=== PATIENT | female | born 1955 | race Caucasian/White ===

== ENCOUNTER → 2018-01-09 09:07 | Outpatient (CLI) | payer OTHER, SELFPAY ==
[2018-01-09 09:18] VITALS: BP 150/86; PULSE 63; RESP 18; TEMP 36.4; O2SAT 98; BMI 23.6
[2018-01-09] MEDS: Zoledronic Acid 5 MG 100 ML 300 MG IV (09:49)
== END ==
PROVIDERS: Family Provider Family Medicine; PCP Family Medicine; Visit Provider Family Medicine
DX: M81.0 Age-related osteoporosis without current pathological fracture (principal)
CPT/HCPCS: 96365; J7050; A4216; J3489

== ENCOUNTER 2018-02-20 17:02 | Outpatient (RCR) | payer OTHER, SELFPAY ==
--- NOTE | 2018-02-20 18:12 | HP.PTEVAL_ITS ---
Patient's Visit Information NATALYA PURI is a 62 year old F referred to Physical Therapy by Tina Sheffield MD with a diagnosis of Back pain especially the L side. Date of Evaluation: 02/20/18 Physical Therapist: Tessa Calderon - Visit Plan Frequency: 2x /Week Duration: 4 Weeks Plan: Call MD and get an x-ray. With h/o severe osteoporosis, mechanism of injury lifting a heavy person, constant abdominal pain, comstipation, loss of apetite, pain relieved lying down and increased in standing...concerned about a compression fx. After R/O compression fx work on neutral spine core stability, proper lifting techniques, possible recommendation of a back brace for work with HEP and modalities as needed. 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 It hurts across her LB, B hips medial and stomach area and side where ribs in. As soon as pain in back the stomach started to hurt which has never done that before. and her stomach hurts and harder to have normal bowl movements. She has taken a few percacet. She has severe Osteoporsis of her spine. She is not losing bowl and bladder control. It is sharp oain in the stomach like a severe cramping. She hurts and tries to sleep all the time cause its uncomfortable. It is non-stop stomach pain....she does not feel like eating cause of the pain. - Pain back pain Pain Intensity (Out of 10): 7 Hip pain Pain Intensity (Out of 10): 7 rib pain Pain Intensity (Out of 10): 7 stomach pain Pain Intensity (Out of 10): 7 - Objective Trunk AROM: flex 100% with increased pain, ext 50% with some pain, SB B 75%. Gait: normal gait pattern.... able to walk on toes but pulls on the L side LB. Able to walk on heels. LE MMT: B hip flex 4-/5, B hip abd 4-/5, B knee flex 4/5, B knee ext 4/5. -SLUMP test, - SLR test. Prone Lying has pressure in the center of her back.....laid there X 5 min and the pain remaind present - Goals Goal 1:: I HEP Goal Time Frame: 4-6 Weeks Goal 2:: Be able to demonstrate proper lifting mechanics to avoid re-injury Goal Time Frame: 4-6 Weeks Goal 3:: decrease back pain to 1/10 with ADL's Goal Time Frame: 4-6 Weeks - Rehabilitation Potential Rehabilitation Potential: Good - Anticipated Interventions Patient/Client Instruction: Educate patient on: Plan of Care For the Purpose of:: To decrease pain, To improve nutrient delivery to tissue, To improve muscle performance and motor function, To improve ability to perform ADL's, To increase tolerance to activity/condition/position, To increase flexibility/ROM Therapeutic Exercise to Include: Strength training, Postural training, Dynamic Lumbar Stabilization, Scapular Strength/Stabilization For the Purpose of:: To decrease pain, To increase ROM, To improve nutrient delivery to tissue, To improve muscle performance and motor function, To improve ability to perform ADL's, To increase tolerance to activity/condition/ position, To improve ability of physical actions for home/community/work/leisure , To improve health of tissue IF ES: Yes Cryotherapy (ice pack, ice massage): Yes Thermo therapy (hot pack): Yes Ultrasound (thermal/non thermal): Yes For the Purpose of:: To decrease pain, To decrease swelling/inflammation, To increase ROM, To improve nutrient delivery to tissue Thank you for the opportunity to evaluate your patient. For Medicare and Medicare HMO plans, please review the plan of care and approve it. It will need to be FAXED BACK to us at [phone] for Medicare purposes. Please let me know if there are questions or concerns regarding this plan of care. Physician Signature: Date:
--- NOTE | 2018-05-15 17:45 | HP.PTDCNRP_ITS ---
HP - Discharge Summary (1) - Patient Information NATALYA PURI was seen in my office for initial evaluation on 02/20/18. The following Plan of Care was established for this patient: Initial Frequency: 2x /Week Initial Duration: 4 Weeks - Anticipated Interventions Patient/Client Instruction: Educate patient on: Plan of Care For the Purpose of:: To decrease pain, To improve nutrient delivery to tissue, To improve muscle performance and motor function, To improve ability to perform ADL's, To increase tolerance to activity/condition/position, To increase flexibility/ROM Therapeutic Exercise to Include: Strength training, Postural training, Dynamic Lumbar Stabilization, Scapular Strength/Stabilization For the Purpose of:: To decrease pain, To increase ROM, To improve nutrient delivery to tissue, To improve muscle performance and motor function, To improve ability to perform ADL's, To increase tolerance to activity/condition/ position, To improve ability of physical actions for home/community/work/leisure , To improve health of tissue IF ES: Yes Cryotherapy (ice pack, ice massage): Yes Thermo therapy (hot pack): Yes Ultrasound (thermal/non thermal): Yes For the Purpose of:: To decrease pain, To decrease swelling/inflammation, To increase ROM, To improve nutrient delivery to tissue This patient was last seen in our office 02/20/18. Pertinent comments regarding their Physical therapy will appear below: VIJAYA PT as pt did not make any follow up appointments following her eval At this point I will be discontinuing this patient from physical therapy. I would be happy to see this patient again in the future if found appropriate by the physician. Thank you! Tessa Calderon
== END 2018-02-20 19:00 | disposition home or self-care (01) ==
LOC: PT 17:02
PROVIDERS: Family Provider Family Medicine; PCP Family Medicine; Visit Provider Family Medicine
DX: M54.9 Dorsalgia, unspecified (principal)
CPT/HCPCS: 97162

== ENCOUNTER → 2018-02-21 10:36 | Outpatient (CLI) | payer OTHER, SELFPAY ==
--- NOTE | 2018-02-21 10:40 | RAD_ITS ---
STUDY: X-RAY - THORACIC SPINE REASON FOR EXAM: Female, 62 years old. Back pain. Left-sided back pain. TECHNIQUE: 2 view(s) of the thoracic spine were obtained. COMPARISON: Lumbar spine, February 21, 2018. FINDINGS: Normal kyphosis of the thoracic spine. There is no substantial scoliosis. Normal thoracic vertebrae and endplates. Normal disc space heights. There is no evidence of acute fracture or loss of vertebral axial height. The soft tissue structures are unremarkable. RAD/Thoracic Spine 3 Views IMPRESSION: Normal x-ray examination of the thoracic spine. Electronically Signed: Nik Zaman DO at 17:43 EDT Tel [phone], Service support ,
--- NOTE | 2018-02-21 10:40 | RAD_ITS ---
STUDY: X-RAY - LUMBAR SPINE REASON FOR EXAM: Female, 62 years old. Back pain radiating into the left side. TECHNIQUE: 5 view(s) of the lumbar spine were obtained. COMPARISON: None FINDINGS: Normal lumbar lordosis. There is no substantial scoliosis. There is a normal alignment of the vertebrae. Normal vertebral bodies and endplates. Normal disc space heights. There is no evidence of acute fracture or loss of vertebral axial height. There is no demonstrated spondylolysis of the pars interarticulares. There is atherosclerotic calcification of the abdominal aorta without a demonstrated aneurysm. There is distended small bowel loops suggestive of ileus. RAD/L/S Spine Min 4 Views IMPRESSION: Normal x-ray examination of the lumbar spine. Electronically Signed: Nik Zaman DO at 18:24 EDT Tel [phone], Service support ,
== END ==
PROVIDERS: Family Provider Family Medicine; PCP Family Medicine; Visit Provider Family Medicine
DX: M54.9 Dorsalgia, unspecified (principal); M81.0 Age-related osteoporosis without current pathological fracture
CPT/HCPCS: 72072; 72110

== ENCOUNTER 2018-05-06 15:58 | Emergency (ER) | payer OTHER, SELFPAY ==
[2018-05-06 15:59] VITALS: BP 135/75; PULSE 93; RESP 18; TEMP 37.1; O2SAT 98; BMI 23.0
--- NOTE | 2018-05-06 16:08 | ED.VISSUMM ---
- ER Visit Summary Date of Service: 05/06/18 Chief Complaint: Cough History of Present Illness: The patient is a 62 F who has had cough for 3 weeks. Is productive of yellow sputum. She has had sinus congestion with it. She does have a history of COPD and try to use her albuterol but she states she cannot take a deep breath enough to get the medicines in. Hurts to breathe deep because of all the coughing. She tried Mucinex and allergy medicines without any relief. Denies any fevers. Physical Examination: Vital signs reviewed. HEENT exam unremarkable. Heart is regular rate and rhythm without murmurs. Lungs are clear to auscultation. Abdomen is soft and nontender. Extremities reveal no edema. Skin exam normal. Neurologic exam normal. Test Results: Chest x-ray reveals chronic changes my interpretation Emergency Department Course and Treatment: Patient had a azithromycin here due to the longevity of her symptoms. She will follow-up with her PCP Treatment Plan: [] Disposition: Discharge Impression: Acute bronchitis This note was generated with [employer] dictation software. It may contain incorrect words, spelling, and punctuation that were not noted in review of the chart prior to signing ED Disposition - Plan for ED Patient: Chief Complaint: Cough Referrals: Tina Sheffield MD [Primary Care Provider] -
[2018-05-06 16:53] VITALS: O2SAT 98
--- NOTE | 2018-05-06 17:57 | ED.DEP ---
ED Disposition - Plan for ED Patient: Disposition: Home or Assisted Living Chief Complaint: Cough Instructions: ED Upper Resp Infec Abx Tx Prescriptions: Azithromycin [Zithromax] 250 mg PO DAILY #4 tab Referrals: Tina Sheffield MD [Primary Care Provider] -
[2018-05-06] MEDS: Azithromycin 250 MG Tablet 500 MG PO (18:03)
[2018-05-06 18:04] VITALS: BP 127/71; PULSE 82; RESP 16; O2SAT 97
--- NOTE | 2018-05-07 11:11 | CM.ED ---
ED CALLBACK: Follow-up call placed to patient with no answer. Voicemail left with return contact information.
== END 2018-05-06 18:08 | disposition home or self-care (01) ==
PROVIDERS: Emergency Provider Emergency Medicine; Family Provider Family Medicine; PCP Family Medicine
DX: J44.0 Chronic obstructive pulmonary disease with (acute) lower respiratory infection (principal); J20.9 Acute bronchitis, unspecified; I10 Essential (primary) hypertension; Z79.899 Other long term (current) drug therapy
CPT/HCPCS: 71046; 99283

== ENCOUNTER 2018-05-23 08:02 | Emergency (ER) | payer OTHER, SELFPAY ==
[2018-05-23 08:03] VITALS: BP 97/69; PULSE 147; RESP 16; TEMP 36.7; O2SAT 97; BMI 23.0
--- NOTE | 2018-05-23 08:21 | EKG12_ITS ---
Test Reason : REPEAT EKG Blood Pressure : / mmHG Vent. Rate : 059 BPM Atrial Rate : 059 BPM P-R Int : 114 ms QRS Dur : 080 ms QT Int : 404 ms P-R-T Axes : 000 035 032 degrees QTc Int : 399 ms Sinus bradycardia with sinus arrhythmia Otherwise normal ECG Confirmed by VIGNESH MOMIN, FARIDA ([id number]), editorial specialist HOLLIE ESPINO ([id number]) on 05/29/2018 9:12:02 AM Referred By: HALEY Confirmed By:FARIDA MEDELLIN MD
--- NOTE | 2018-05-23 08:25 | RAD_ITS ---
STUDY: X-RAY CHEST REASON FOR EXAM: Female, 62 years old. Shortness of breath. Dyspnea. TECHNIQUE: Single AP portable view of the chest. COMPARISON: Comparison is made with prior study dated May 06, 2018. FINDINGS: EKG electrodes are seen. Hyperinflation. The lungs are clear. No acute abnormality is seen. There is no demonstrated pleural abnormality. Normal size heart. Normal mediastinum and tiago. Normal visualized pulmonary arteries. Normal visualized aortic arch and descending thoracic aorta. Normal visualized thoracic spine. Normal visualized ribs, clavicles, and shoulders. There is no demonstrated abnormality of the visualized soft tissue structures of the upper abdomen. RAD/Chest 1 View (Portable) IMPRESSION: Hyperinflation. Electronically Signed: Ej Clifton MD at 9:31 EDT Tel [phone], Service support ,
[2018-05-23] MEDS: 0.9% Normal Saline 1,000 ML 1000 ML IV (08:28)
[2018-05-23] MEDS: dilTIAZem 25 MG/5 ML Vial 10 MG IV BOLUS (08:28)
[2018-05-23 08:48] LABS: Absolute Lymphocyte Count 1.82 X10^3/ul (0.83-4.51); Absolute Neutrophil Count 6.4 X10^3/uL (2.0-7.7); Basophil# 0.04 X10^3/uL; Basophil% 0.4 % (0-1); Eosinophil# 0.11 X10^3/uL; Eosinophils% 1.2 % (0-5); Hematocrit 44.9 % (37-47); Hemoglobin 14.8 g/dl (12.0-15.0); Lymphocyte # 1.82 X10^3/ul (4.0); Lymphocyte % 20.4 % (19-41); Mean Corpuscular Hgb 30.3 pg (27.0-32.0); Mean Corpuscular Volume 91.8 fL (81-99); Mean Platelet Vol. 10.7 fl (6.2-12.0); Monocyte# 0.57 X10^3/uL; Monocyte% 6.4 % (0-10); Neutrophil # 6.39 X10^3/uL (2.7-7.7); Neutrophil % 71.5 % (47-70); Platelet Count 287 K/mm3 (150-450); RBC Distribution Width CV 13.6 % (11.6-14.6); RBC Distribution Width SD 45.1 fl (35.1-43.9); Red Blood Count 4.89 M/mm3 (4.2-5.4); White Blood Count 8.9 K/mm3 (4.4-11.0)
[2018-05-23] MEDS: DiphenhydrAMINE 50 MG/ML Syringe 25 MG IV (08:49)
[2018-05-23 08:51] LABS: POSITIVE COUNT NO; POSITIVE DIFFERENTIAL NO; POSITIVE MORPHOLOGY NO
[2018-05-23 09:05] LABS: Anion Gap 13 (5-15); BUN 16 mg/dL (7-18); BUN/Creat Ratio 18.7 RATIO (10-20); Chloride 106 mmol/L (98-107); Creatinine, Serum 0.86 mg/dL (0.55-1.02); EST Glomerular Filtration Rate 71 mL/min (>60); Est Glom Filt Rate - Afr Amer 86 mL/min (>60); Estimated Creatinine Clearance 53.64 ml/min; Glucose 151 mg/dL (74-106); Potassium 3.8 mmol/L (3.5-5.1); Sodium Level 140 mmol/L (136-145)
--- NOTE | 2018-05-23 09:46 | ED.VISSUMM ---
- ER Visit Summary Date of Service: 05/23/18 Chief Complaint: [Elevated heart rate] History of Present Illness: The patient is a 62 F [that presents with elevated heart rate. Patient has a history of an elevated heart rate in the past. She states initially she was told she had atrial fibrillation but then she was told she had a tachycardic rhythm and sometimes premature beats. She takes no anticoagulation other than aspirin. She states she has not taken aspirin lately. She takes diltiazem at home but sometimes forgets and yesterday admits she took it at night instead of in the morning. She has no history of arrhythmia otherwise and denies any history of WPW. She denies any chest pain or shortness of breath. No symptoms of near syncope or syncope. She overall appears well and nontoxic. No recent fever or illness. She has no other complaints.] Physical Examination: [General: The patient appears well and in no apparent distress. Patient is resting comfortably on cart. Skin: Warm, dry, no pallor noted. No rash. Head: Normocephalic, atraumatic Neck: Supple, nontender. No JVD. Eye: PERRLA, EOMI ENT: Moist mucus membranes, pharynx within normal limits. Cardiovascular: Tachycardic rate and regular rhythm, no gallups or rubs Respiratory: Patient is in no distress, no accessory muscle use, lungs are clear to auscultation, no wheezing, rales or rhonchi Musculoskeletal: normal ROM, no deformity, no tenderness, no swelling. 2+ radial and DP pulses symmetric. GI: No tenderness to palpation, no masses appreciated. No rebound, guarding, or rigidity noted. Neurological: A&O, normal strength and sensation. GCS 15. Psychiatric: Cooperative] Test Results: [EKG; tachycaric and regular appearing rhythm with a rate of 139, no acute ischemic changes or arrhythmia. Normal intervals. No heart blocks. No delta wave. Liver overall unremarkable. Chest x-ray shows no acute process.] Emergency Department Course and Treatment: [Patient was given IV fluids and 10 mg of IV Cardizem. She had some erythema of the right upper extremity where her IV site is and she was given IV Benadryl. She had no hives or urticaria. No dyspnea. She remained overall well-appearing and nontoxic. Her heart rate did improve and repeat EKG shows a sinus rhythm with a rate of 59. I do see P waves. There is no evidence of ischemia. On reevaluation at 0940 her heart rate is in the 60s and her blood pressure is 120 systolic. She is currently asymptomatic. She ambulated to the restroom without difficulty. At this time I feel she is stable for discharge and close follow-up with her primary provider and neuropsychiatrist. She was instructed to remain compliant with her medications and return with any new or worsening symptoms. Patient understands and is agreeable with this plan of care. Patient was discharged home in stable and improved condition.] Treatment Plan: [See above] Disposition: [Discharge home, stable and improved condition] Impression: [Narrow complex tachycardia - resolved] This note was generated with [employer] dictation software. It may contain incorrect words, spelling, and punctuation that were not noted in review of the chart prior to signing ED Disposition - Plan for ED Patient: Disposition: Home or Assisted Living Chief Complaint: Palpitations Instructions: ED Tachycardia Pat PSVT Referrals: Tina Sheffield MD [Primary Care Provider] -
--- NOTE | 2018-05-23 09:52 | ED.DCSUM_ITS ---
- ER Visit Summary Date of Service: 05/23/18 Chief Complaint: [Elevated heart rate] History of Present Illness: The patient is a 62 F [that presents with elevated heart rate. Patient has a history of an elevated heart rate in the past. She states initially she was told she had atrial fibrillation but then she was told she had a tachycardic rhythm and sometimes premature beats. She takes no anticoagulation other than aspirin. She states she has not taken aspirin lately. She takes diltiazem at home but sometimes forgets and yesterday admits she took it at night instead of in the morning. She has no history of arrhythmia otherwise and denies any history of WPW. She denies any chest pain or shortness of breath. No symptoms of near syncope or syncope. She overall appears well and nontoxic. No recent fever or illness. She has no other complaints.] Physical Examination: [General: The patient appears well and in no apparent distress. Patient is resting comfortably on cart. Skin: Warm, dry, no pallor noted. No rash. Head: Normocephalic, atraumatic Neck: Supple, nontender. No JVD. Eye: PERRLA, EOMI ENT: Moist mucus membranes, pharynx within normal limits. Cardiovascular: Tachycardic rate and regular rhythm, no gallups or rubs Respiratory: Patient is in no distress, no accessory muscle use, lungs are clear to auscultation, no wheezing, rales or rhonchi Musculoskeletal: normal ROM, no deformity, no tenderness, no swelling. 2+ radial and DP pulses symmetric. GI: No tenderness to palpation, no masses appreciated. No rebound, guarding, or rigidity noted. Neurological: A&O, normal strength and sensation. GCS 15. Psychiatric: Cooperative] Test Results: [EKG; tachycaric and regular appearing rhythm with a rate of 139, no acute ischemic changes or arrhythmia. Normal intervals. No heart blocks. No delta wave. Liver overall unremarkable. Chest x-ray shows no acute process. ] Emergency Department Course and Treatment: [Patient was given IV fluids and 10 mg of IV Cardizem. She had some erythema of the right upper extremity where her IV site is and she was given IV Benadryl. She had no hives or urticaria. No dyspnea. She remained overall well-appearing and nontoxic. Her heart rate did improve and repeat EKG shows a sinus rhythm with a rate of 59. I do see P waves. There is no evidence of ischemia. On reevaluation at 0940 her heart rate is in the 60s and her blood pressure is 120 systolic. She is currently asymptomatic. She ambulated to the restroom without difficulty. At this time I feel she is stable for discharge and close follow-up with her primary provider and clothing pattern preparer. She was instructed to remain compliant with her medications and return with any new or worsening symptoms. Patient understands and is agreeable with this plan of care. Patient was discharged home in stable and improved condition.] Treatment Plan: [See above] Disposition: [Discharge home, stable and improved condition] Impression: [Narrow complex tachycardia - resolved] This note was generated with [employer] dictation software. It may contain incorrect words, spelling, and punctuation that were not noted in review of the chart prior to signing ED Disposition - Plan for ED Patient: Disposition: Home or Assisted Living Chief Complaint: Palpitations Instructions: ED Tachycardia Pat PSVT Referrals: Tina Sheffield MD [Primary Care Provider] -
--- NOTE | 2018-05-23 09:56 | EKG12_ITS ---
Test Reason : CP Blood Pressure : / mmHG Vent. Rate : 139 BPM Atrial Rate : 174 BPM P-R Int : 000 ms QRS Dur : 080 ms QT Int : 288 ms P-R-T Axes : 000 051 011 degrees QTc Int : 438 ms Supraventricular tachycardia Otherwise normal ECG Confirmed by VIGNESH MOMIN, FARIDA ([id number]), food editor HOLLIE ESPINO ([id number]) on 05/29/2018 9:23:41 AM Referred By: CHA Confirmed By:FARIDA MEDELLIN MD
[2018-05-23 10:01] VITALS: BP 141/75; PULSE 69; RESP 17; O2SAT 98
== END 2018-05-23 10:03 | disposition home or self-care (01) ==
PROVIDERS: Emergency Provider Emergency Medicine; Family Provider Family Medicine; PCP Family Medicine
DX: R00.0 Tachycardia, unspecified (principal); L53.9 Erythematous condition, unspecified; Z79.899 Other long term (current) drug therapy
CPT/HCPCS: 71045; 80048; 84484; 85025; 93005; 96361; 96374; 96375; 99285; J7030; A4216

== ENCOUNTER 2018-11-03 18:14 | Emergency (ER) | payer OTHER, SELFPAY ==
[2018-11-03 18:15] VITALS: BP 138/97; PULSE 98; RESP 20; TEMP 37.4; O2SAT 97; BMI 23.0
--- NOTE | 2018-11-03 19:03 | ED.DCSUM_ITS ---
- ER Visit Summary Date of Service: 11/03/18 Chief Complaint: Cough History of Present Illness: The patient is a 63 F presenting with cough and fever. Patient has had low-grade fever with temperature up to 99.6 at home. She has cough productive of yellow sputum. She also complains of body aches and nausea. She denies shortness of breath or chest pain. She was recently diagnosed with lung cancer and is scheduled to have a lung biopsy tomorrow. She did not receive a flu shot this year. She is a previous smoker. Physical Examination: Vitals are stable. Temperature 99.3. Pulse ox 97% on room air. alert no acute distress. HEENT exam is unremarkable. Neck is supple. Lungs are clear and equal bilaterally. Heart is regular rate and rhythm. Abdomen is soft nontender nondistended. Extremities are unremarkable. Skin is warm and dry. No focal neurologic deficit. Remainder of exam is unremarkable. Emergency Department Course and Treatment: Patient was given Tylenol, Zofran. Influenza negative. Chest x-ray shows right upper lobe collapse/volume loss, new. Post obstructive etiology should be considered. Postobstructive pneumonia cannot be excluded. Patient states she has been told in the past that her right upper lobe is collapsed. Due to her new fever and productive cough she will be started on Levaquin. She is advised to follow-up with [facility] tomorrow. Advised return to ED if worsening complaints. Disposition: Discharge home Impression: Bronchitis This note was generated with [employer] dictation software. It may contain incorrect words, spelling, and punctuation that were not noted in review of the chart prior to signing ED Disposition - Plan for ED Patient: Referrals: Fausto Butt MD [Primary Care Provider] -
[2018-11-03] MEDS: Ondansetron ODT 4 MG Tablet PO (19:17)
[2018-11-03] MEDS: Acetaminophen 500 MG Tablet 1000 MG PO (19:17)
--- NOTE | 2018-11-03 19:20 | RAD_ITS ---
STUDY: X-RAY CHEST REASON FOR EXAM: Female, 63 years old. Low-grade fever and cough TECHNIQUE: AP COMPARISON: 05/23/2018 FINDINGS: There is opacity of the right upper lobe with suspected lobar collapse and elevation of the fissure. There is no demonstrated pleural abnormality. Normal size heart. Normal mediastinum and tiago. Normal visualized pulmonary arteries. There is atherosclerotic calcification of the aortic arch with tortuosity. No acute bony process. There is no demonstrated abnormality of the visualized soft tissue structures of the upper abdomen. RAD/Chest 1 View (Portable) IMPRESSION: Right upper lobe collapse/volume loss, new. Post obstructive etiology should be considered. Postobstructive pneumonia cannot be excluded. Electronically Signed: Boo Gregorio MD at 19:39 EST , Service support ,
--- NOTE | 2018-11-03 20:39 | ED.DEP ---
ED Disposition - Plan for ED Patient: Instructions: ED Upper Resp Infec Abx Tx Prescriptions: Levofloxacin [Levaquin] 750 mg PO DAILY #4 tablet Referrals: Fausto Butt MD [Primary Care Provider] -
[2018-11-03 20:56] VITALS: BP 116/64; PULSE 93; RESP 16; O2SAT 94
[2018-11-03] MEDS: levoFLOXacin 750 MG Tablet PO (21:00)
== END 2018-11-03 21:02 | disposition home or self-care (01) ==
LOC: ED 19:12
PROVIDERS: Emergency Provider Emergency Medicine; Family Provider Family Medicine; PCP Family Medicine
DX: J40 Bronchitis, not specified as acute or chronic (principal); J98.19 Other pulmonary collapse; C34.90 Malignant neoplasm of unspecified part of unspecified bronchus or lung; J44.9 Chronic obstructive pulmonary disease, unspecified; I10 Essential (primary) hypertension; Z79.899 Other long term (current) drug therapy; Z87.891 Personal history of nicotine dependence
CPT/HCPCS: 71045; 87804; 99283

== ENCOUNTER 2019-03-07 11:49 | Emergency (ER) | payer MEDICAID, SELFPAY ==
[2019-03-07 11:50] VITALS: BP 144/82; PULSE 71; RESP 17; TEMP 36.6; O2SAT 97; BMI 23.2
--- NOTE | 2019-03-07 11:59 | VDUE_ITS ---
Reason For Study: Swelling Right Proximal Left Proximal Right subclavian vein is spontaneous, widely Left jugular vein is spontaneous, widely patent, phasic, with no intraluminal patent, phasic, with no intraluminal echogenicity noted. echogenicity noted. Left subclavian vein is spontaneous, widely patent, phasic, with no intraluminal echogenicity noted. Left Arm Left axillary vein is spontaneous, patent, phasic, competent, compressible and demonstrates augmentation. Left brachial vein is compressible. Acute superficial vein thrombosis noted in the LT cephalic vein from wrist to axillary. Left basilic vein is compressible. Left Lower Arm Left radial vein is compressible. Left ulnar vein is compressible. Interpretation Summary There is no evidence of left upper extremity deep vein thrombosis. Superficial thrombophlebitis left cephalic vein entire length wrist to axilla. Normal flow patterns right subclavian vein Ordering Physician: Jennifer Romano Referring Physician: MD Daquan Fausto Performed By: Maryjane Urban RVT ?
--- NOTE | 2019-03-07 11:59 | ED.VIS.UPPEX ---
History of Present Illness Chief Complaint: Upper Extremity Injury Detail of Chief Complaint: Left arm redness and swelling Informant: Patient, Family Occurred: Weeks - 2 Mechanism/Context: - - Redness and swelling following IV for chemotherapy. Onset: Weeks - 2 Context: Gradual Onset Quality of Pain: Aching Current Severity: Mild Maximum Severity: Mild Associated Symptoms: Negative for: Parasthesia, Weakness Narrative: Patient is currently receiving chemotherapy treatments for lung cancer. Patient states when she went for her treatment on 25 February they had noticed thrombophlebitis of her left forearm from her injection site the week prior. She got her chemotherapy through IV access on her right arm on the . She has been using heat to the left forearm but states the area continues to swell and the redness has somewhat worsened. She was advised to come in to ensure there is no sign of blood clot. She states otherwise she feels well. Past Medical History - Allergies and Home Meds Allergies/Adverse Reactions: Allergies codeine Adverse Reaction (Verified 03/07/19 11:50) Nausea verapamil Adverse Reaction (Verified 03/07/19 11:50) Nausea/Vom/Diarrhea Primary Care Physician: Fausto Butt MD [Primary Care Provider] - Prior records reviewed: Yes Past Medical History: - - Reviewed Smoking Status: Former smoker Review of Systems General: Denies: Chills, Fever Cardiovascular: Denies: Chest pain Respiratory: Denies: Dyspnea, Cough Gastrointestinal: Denies: Abdominal pain, Nausea, Vomiting Musculoskeletal: Reports: Myalgias. Denies: Neck pain, Back pain Neurological: Denies: Weakness, Parasthesia Physical Exam Vital Signs/Narrative: Vital Signs Temp Pulse Resp BP Pulse Ox 03/07/19 11:50 97.9 F 71 17 144/82 H 97 Inital Vital Signs reviewed: Yes Left Forearm: - - Erythema and mild edema over the volar portion of the left forearm. No open wounds noted. She has good range of motion at all joints. Strong distal pulses are noted. General: Well nourished ENT: No Trauma Neck: Nontender, Full ROM Cardiovascular: Regular rate, Regular rhythm Respiratory: No distress, CTA bilaterally Abdomen: Soft Skin: - - As above Neurological: Alert, Oriented x3, Normal Strength, Normal Sensation Diagnostic/Tx/Re-eval Venous ultrasound of the left upper extremity does reveal a clot in the cephalic vein from her wrist to axilla. - Medical Decision Making Patient does have evidence of a clot in the left upper extremity. I spoke with her oncologist, Dr. Arriaza at [facility]. He has no contraindication to starting her on anticoagulant. She will be started on Xarelto, 50 mg twice daily for the first 3 weeks. She will be given that prescription here initially. Dr. Arriaza did review her blood work from 1 week ago and stated her lab work was within limits to start Xarelto without difficulty. Disposition: Home ED Disposition - Plan for ED Patient: Disposition: Home or Assisted Living Diagnosis: DVT of upper extremity (deep vein thrombosis) Instructions: Deep Vein Thrombosis Prescriptions: Rivaroxaban [Xarelto] 15 mg PO BID #42 tablet Referrals: Fausto Butt MD [Primary Care Provider] - 1-2 Weeks
[2019-03-07] MEDS: Rivaroxaban 15 MG Tablet PO (14:01)
--- NOTE | 2019-03-07 14:04 | ED.RN ---
DISCHARGE INSTRUCTIONS GIVEN TO AND REVIEWED WITH PATIENT, PATIENT DENIES QUESTIONS OR CONCERNS AND VOICES UNDERSTANDING OF DISCHARGE INSTRUCTIONS. PT AMBULATES OUT OF ROOM WITHOUT DIFFICULTY.
== END 2019-03-07 14:04 | disposition home or self-care (01) ==
PROVIDERS: Emergency Provider Emergency Medicine; Family Provider Family Medicine; PCP Family Medicine
DX: I82.622 Acute embolism and thrombosis of deep veins of left upper extremity (principal); C34.90 Malignant neoplasm of unspecified part of unspecified bronchus or lung; Z79.899 Other long term (current) drug therapy; Z87.891 Personal history of nicotine dependence
CPT/HCPCS: 93971; 99283

== ENCOUNTER 2019-03-09 20:06 | Emergency (ER) | payer MEDICAID, SELFPAY ==
[2019-03-09 20:08] VITALS: BP 153/100; PULSE 87; RESP 16; TEMP 37.1; O2SAT 96; BMI 23.3
--- NOTE | 2019-03-09 21:10 | RAD_ITS ---
STUDY: X-RAY CHEST REASON FOR EXAM: Female, 63 years old. Fever. Current chemotherapy. Lung cancer. TECHNIQUE: Single AP portable view of the chest. COMPARISON: November 03, 2018. FINDINGS: Cardiac silhouette unremarkable. Pulmonary vascularity unremarkable. Aorta minimally calcified. Postsurgical changes the right lobe with surgical clips. Right suprahilar surgical clips. Volume loss at the right apex. Minimal fullness of the right paratracheal region. No new focal patchy airspace opacities. No significant pleural effusions. Upper abdomen unremarkable. Osseous structures intact. No pneumothorax. RAD/Chest 1 View (Portable) IMPRESSION: No new focal patchy airspace opacities or pleural effusions Right lung postsurgical changes with volume loss Electronically Signed: Diony Orozco DO at 21:32 EDT Tel , Service support ,
[2019-03-09] MEDS: 0.9% Normal Saline 1,000 ML 150 ML IV (21:26)
[2019-03-09 21:38] LABS: Absolute Lymphocyte Count 1.38 X10^3/ul (0.83-4.51); Absolute Neutrophil Count 2.3 X10^3/uL (2.0-7.7); Basophil# 0.02 X10^3/uL; Basophil% 0.5 % (0-1); Hematocrit 33.7 % (37-47); Lymphocyte # 1.38 X10^3/ul (4.0); Lymphocyte % 36.7 % (19-41); Mean Corp Hgb Conc 32.6 g/gl (32-36); Mean Corpuscular Hgb 28.6 pg (27.0-32.0); Mean Corpuscular Volume 87.8 fL (81-99); Mean Platelet Vol. 9.3 fl (6.2-12.0); Monocyte# 0.02 X10^3/uL; Monocyte% 0.5 % (0-10); Neutrophil # 2.34 X10^3/uL (2.7-7.7); Neutrophil % 62.3 % (47-70); Platelet Count 89 K/mm3 (150-450); RBC Distribution Width CV 13.2 % (11.6-14.6); RBC Distribution Width SD 42.4 fl (35.1-43.9); Red Blood Count 3.84 M/mm3 (4.2-5.4); White Blood Count 3.8 K/mm3 (4.4-11.0)
[2019-03-09 21:40] LABS: Bacteria 0 SEEN /hpf (None Seen); Mucous, Urine 0 SEEN /hpf (<or=2+); Red Blood Cells-Urine 0 SEEN /hpf (0-5); Squamous Epithelial Cells - UA 0 SEEN /hpf (5-10); White Blood Cells 0 SEEN /hpf (0-5)
[2019-03-09 21:40] LABS: POSITIVE COUNT NO; POSITIVE DIFFERENTIAL NO; POSITIVE MORPHOLOGY NO
[2019-03-09 21:42] LABS: Prothrombin Time (Protime)PT. 13.2 SECONDS (11.7-14.9)
[2019-03-09 21:43] LABS: Partial Thromboplast Time 30.8 Seconds (24.1-36.2)
[2019-03-09 21:44] LABS: Color, Urine Yellow (Yellow); Glucose, Dipstick Normal (Normal); Ketone-Dipstick Negative (Negative); Leukocyte Esterase-Dipstick Negative /ul (Negative); Nitrite-Dipstick Negative (Negative); Occult Blood-Urine 10 /ul (Negative); Protein-Dipstick Negative (Negative); Urine Bilirubin Dipstick Negative (Negative); Urine Clarity Clear (Clear); Urine Urobilinogen Normal (Normal)
[2019-03-09 21:45] LABS: AST(SGOT) 22 U/L (15-37); Alanine Aminotransfer ALT/SGPT 38 U/L (13-56); Albumin, Serum 3.2 g/dL (3.2-5.0); Alkaline Phosphatase 84 U/L (45-117); Anion Gap 10 (5-15); BUN 19 mg/dL (7-18); BUN/Creat Ratio 19.2 RATIO (10-20); Bilirubin, Direct 0.06 mg/dL (0.00-0.30); Calcium,Total 8.5 mg/dL (8.5-10.1); Chloride 104 mmol/L (98-107); Creatinine, Serum 0.99 mg/dL (0.55-1.02); EST Glomerular Filtration Rate 60 mL/min (>60); Est Glom Filt Rate - Afr Amer 73 mL/min (>60); Globulin 3.5 g/dL (2.2-4.2); Glucose 109 mg/dL (74-106); Potassium 4.3 mmol/L (3.5-5.1); Protein, Total 6.7 g/dL (6.4-8.2); Sodium Level 138 mmol/L (136-145)
[2019-03-09 22:19] VITALS: BP 170/109; PULSE 69; RESP 18; TEMP 37.7; O2SAT 97
--- NOTE | 2019-03-09 23:19 | ED.DCSUM_ITS ---
History of Present Illness Chief Complaint: Fever Informant: Patient, Family Onset: Today Current Severity: Mild Maximum Severity: Mild Narrative: Patient currently receives chemotherapy for lung cancer, last chemotherapy treatment was on February 25. Patient was seen in the ED 2 days ago with what was thought to be superficial thrombophlebitis of her left arm. She was found to have a clot and was started on Xarelto. Patient states that tonight she developed a fever up to 101.2. She has been coughing and bringing up yellow sputum. She also notes some right elbow erythema and is not sure if she may have a clot in that arm as well. - Past Medical History (1) Lung cancer Status: Acute (2) DVT of upper extremity (deep vein thrombosis) Status: Acute Past Medical History - Allergies and Home Meds Allergies/Adverse Reactions: Allergies codeine Adverse Reaction (Verified 03/09/19 20:08) Nausea verapamil Adverse Reaction (Verified 03/09/19 20:08) Nausea/Vom/Diarrhea Primary Care Physician: Fausto Butt MD [Primary Care Provider] - Prior records reviewed: Yes Past Medical History: - - Reviewed Smoking Status: Former smoker Review of Systems General: Reports: Fever. Denies: Chills Eyes: Denies: Visual changes - bilaterally Cardiovascular: Denies: Chest pain, Palpitations Respiratory: Reports: Cough, Sputum. Denies: Dyspnea Gastrointestinal: Denies: Abdominal pain, Nausea, Vomiting, Diarrhea Genitourinary: Denies: Dysuria Musculoskeletal: Denies: Myalgias Neurological: Denies: Headache Physical Exam Vital Signs/Narrative: Vital Signs Temp Pulse Resp BP Pulse Ox 03/09/19 22:19 99.8 F H 69 18 170/109 H 97 03/09/19 20:08 98.7 F 87 16 153/100 H 96 General: Well nourished, Well developed Eyes: Perrl ENT: Moist mucous membranes Cardiovascular: Regular rate, Regular rhythm Respiratory: No distress, CTA bilaterally Abdomen: Soft, Nontender Back: Nontender Extremities: - - Minimal erythema along the medial right elbow. Area is not significantly warm or indurated that would be more consistent with cellulitis. Left upper extremity reveals mild erythema that is improved when compared to 2 days ago. Neurological: Alert, Oriented x3 Psychological: Normal affect Diagnostic/Tx/Re-eval Impressions Chest X-Ray 03/09/19 21:10 IMPRESSION: No new focal patchy airspace opacities or pleural effusions Right lung postsurgical changes with volume loss Electronically Signed: Diony Ernesto, DO at 21:32 EDT Tel , Service support , 03/09/19 21:10 Chest 1 View (Portable) [RAD] Stat Laboratory Results 03/09/19 03/09/19 03/09/19 21:00 21:00 21:00 WBC 3.8 L RBC 3.84 L Hgb 11.0 L Hct 33.7 L MCV 87.8 MCH 28.6 MCHC 32.6 RDW 13.2 RDW Differential 42.4 Plt Count 89 L MPV 9.3 Immature Gran % (Auto) 0.000 Neut % (Auto) 62.3 Lymph % (Auto) 36.7 Riley % (Auto) 0.5 Eos % (Auto) 0.0 Baso % (Auto) 0.5 Absolute Neuts (auto) 2.3 Absolute Lymphs (auto) 1.38 Total Counted Not Reportable PT 13.2 INR 1.0 APTT 30.8 Sodium 138 Potassium 4.3 Chloride 104 Carbon Dioxide 24.0 Anion Gap 10 BUN 19 H Creatinine 0.99 Estim Creat Clear Calc 46.00 Est GFR (MDRD) Af Amer 73 Est GFR (MDRD) Non-Af 60 BUN/Creatinine Ratio 19.2 Glucose 109 H Lactic Acid Calcium 8.5 Total Bilirubin 0.20 Direct Bilirubin 0.06 AST 22 ALT 38 Alkaline Phosphatase 84 Total Protein 6.7 Albumin 3.2 Globulin 3.5 Urine Color Urine Clarity Urine pH Ur Specific Hamlet Urine Protein Urine Glucose (UA) Urine Ketones Urine Occult Blood Urine Nitrite Urine Bilirubin Urine Urobilinogen Ur Leukocyte Esterase Urine RBC Urine WBC Ur Squamous Epith Cells Urine Bacteria Urine Mucus 03/09/19 03/09/19 21:00 21:30 WBC RBC Hgb Hct MCV MCH MCHC RDW RDW Differential Plt Count MPV Immature Gran % (Auto) Neut % (Auto) Lymph % (Auto) Riley % (Auto) Eos % (Auto) Baso % (Auto) Absolute Neuts (auto) Absolute Lymphs (auto) Total Counted PT INR APTT Sodium Potassium Chloride Carbon Dioxide Anion Gap BUN Creatinine Estim Creat Clear Calc Est GFR (MDRD) Af Amer Est GFR (MDRD) Non-Af BUN/Creatinine Ratio Glucose Lactic Acid 1.0 Calcium Total Bilirubin Direct Bilirubin AST ALT Alkaline Phosphatase Total Protein Albumin Globulin Urine Color Yellow Urine Clarity Clear Urine pH 6.0 Ur Specific Hamlet 1.010 Urine Protein Negative Urine Glucose (UA) Normal Urine Ketones Negative Urine Occult Blood 10 H Urine Nitrite Negative Urine Bilirubin Negative Urine Urobilinogen Normal Ur Leukocyte Esterase Negative Urine RBC 0 SEEN Urine WBC 0 SEEN Ur Squamous Epith Cells 0 SEEN Urine Bacteria 0 SEEN Urine Mucus 0 SEEN - Medical Decision Making Patient's labs and imaging studies are reviewed. Blood and urine cultures were sent. It is noted that the patient's platelet count is currently 89,000 and she was just started on Xarelto 2 days ago. On review of clinic [facility] records her platelet count on March 04 was 158,000. I spoke with oncology on-call for [facility]. She reviewed the patient's records. She does not have a follow-up appointment scheduled until March 20. Patient is given outpatient order to have a repeat CBC drawn midweek. She will either come to the hospital for this or have it done through her doctor's office at [facility] here locally. ED Disposition - Plan for ED Patient: Disposition: Home or Assisted Living Diagnosis: Fever Instructions: Thrombocytopenia, FEBRILE ILLNESS, Uncertain Cause (Adult) Referrals: Fausto Butt MD [Primary Care Provider] - Additional Instructions: As discussed, have your labs repeated on Sunday or of this week.
== END 2019-03-09 23:33 | disposition home or self-care (01) ==
PROVIDERS: Emergency Provider Emergency Medicine; Family Provider Family Medicine; PCP Family Medicine
DX: R50.9 Fever, unspecified (principal); C34.90 Malignant neoplasm of unspecified part of unspecified bronchus or lung; Z86.718 Personal history of other venous thrombosis and embolism; Z79.01 Long term (current) use of anticoagulants; Z87.891 Personal history of nicotine dependence
CPT/HCPCS: 36415; 71045; 80048; 80076; 81001; 83605; 85025; 85610; 85730; 87040; 87086; 87088; 96360; 96361; 99284; J7030; A4216

== ENCOUNTER 2019-04-06 18:17 | Emergency (ER) | payer MEDICAID, SELFPAY ==
[2019-04-06 18:18] VITALS: BP 143/90; PULSE 89; RESP 20; TEMP 36.6; O2SAT 95; BMI 23.0
--- NOTE | 2019-04-06 18:43 | ED.VIS.GEN ---
History of Present Illness Chief Complaint: General Illness Detail of Chief Complaint: Right upper extremity erythema Onset: Yesterday Current Severity: Mild Maximum Severity: Mild Narrative: Patient is currently undergoing chemotherapy for lung cancer. She has had prior upper extremity DVTs. She is currently on Xarelto. Her last chemotherapy treatment was 2 weeks ago. Yesterday she noted some pain to her volar right forearm and today has a small area of erythema and edema. She spoke with her oncologist who was concerned about another DVT. She states she is advised to come in for an ultrasound and they may change her anticoagulant if she does not fact have another clot. She denies chest pain or shortness of breath. Past Medical History - Allergies and Home Meds Allergies/Adverse Reactions: Allergies codeine Adverse Reaction (Verified 04/06/19 18:17) Nausea verapamil Adverse Reaction (Verified 04/06/19 18:17) Nausea/Vom/Diarrhea Primary Care Physician: Fausto Butt MD [Primary Care Provider] - Prior records reviewed: Yes Past Medical History: - - Reviewed Smoking Status: Former smoker Review of Systems General: Denies: Chills, Fever Eyes: Denies: Visual changes - bilaterally ENT: Denies: Bilateral ear pain Cardiovascular: Denies: Chest pain Respiratory: Reports: Cough. Denies: Dyspnea Gastrointestinal: Denies: Abdominal pain Genitourinary: Denies: Dysuria, Hematuria Musculoskeletal: Reports: Myalgias Skin: Denies: Rash Neurological: Denies: Headache Physical Exam Vital Signs/Narrative: Vital Signs Temp Pulse Resp BP Pulse Ox 04/06/19 18:18 97.8 F 89 20 H 143/90 H 95 Inital Vital Signs reviewed: Yes General: Well nourished Head: Normocephalic ENT: Moist mucous membranes Cardiovascular: Regular rate, Regular rhythm Respiratory: No distress, CTA bilaterally Abdomen: Soft, Nontender Extremities: - - There is a 3 x 4 cm area of erythema over the volar mid forearm with minimal edema. This is not consistent with cellulitis. Strong distal pulses are noted. She is full range of motion without difficulty. Skin: - - As above Neurological: Alert, Oriented x3 Psychological: Normal affect Diagnostic/Tx/Re-eval - Medical Decision Making Patient presented on a Sunday evening when I do not have venous ultrasound available. Patient will return tomorrow for an upper extremity ultrasound. She is agreeable with this plan. ED Disposition - Plan for ED Patient: Disposition: Home or Assisted Living Diagnosis: Myalgia Referrals: Fausto Butt MD [Primary Care Provider] - Additional Instructions: You should receive a phone call tomorrow morning to come in for vascular ultrasound of your arm.
== END 2019-04-06 18:53 | disposition home or self-care (01) ==
PROVIDERS: Emergency Provider Emergency Medicine; Family Provider Family Medicine; PCP Family Medicine
DX: M79.10 Myalgia, unspecified site (principal); C34.90 Malignant neoplasm of unspecified part of unspecified bronchus or lung; Z79.01 Long term (current) use of anticoagulants; Z79.899 Other long term (current) drug therapy; Z88.5 Allergy status to narcotic agent; Z86.718 Personal history of other venous thrombosis and embolism; Z87.891 Personal history of nicotine dependence
CPT/HCPCS: 99283

== ENCOUNTER → 2019-04-07 11:02 | Outpatient (CLI) | payer MEDICAID, SELFPAY ==
[2019-04-06 18:18] VITALS: BMI 23.0
--- NOTE | 2019-04-07 11:11 | VDUE_ITS ---
Reason For Study: Swelling Right Proximal Left Proximal Right jugular vein is spontaneous, widely Left subclavian vein is spontaneous, widely patent, phasic, with no intraluminal patent, phasic, with no intraluminal echogenicity noted. echogenicity noted. Right subclavian vein is spontaneous, widely patent, phasic, with no intraluminal echogenicity noted. Right Lower Arm Right radial vein is compressible. Right ulnar vein is compressible. Right Arm Right axillary vein is spontaneous, patent, phasic, competent, compressible and demonstrates augmentation. Right brachial vein is compressible. Acute superficial vein thrombosis noted in the right cephalic vein extending from wrist to below antecube. Acute superficial vein thrombosis is noted in the right basilic vein extending from above antecube to mid bicep. Patient Safety Pt seen in ED 04/06/19. Prelim to oncologist Alexandro Arriaza. Interpretation Summary No evidence for acute deep venous thrombosis right upper extremity Superficial thrombophlebitis right cephalic vein from the wrist to close to the antecubital space. Superficial thrombophlebitis right basilic vein from the antecubital space to the mid biceps. Normal flow patterns left subclavian vein. Ordering Physician: Jennifer Romano Referring Physician: MD Daquan Fausto Performed By: Maryjane Urban RVT ?
== END ==
PROVIDERS: Family Provider Family Medicine; PCP Family Medicine; Referring Provider Emergency Medicine; Visit Provider Emergency Medicine
DX: M79.89 Other specified soft tissue disorders (principal)
CPT/HCPCS: 93971

== ENCOUNTER 2019-04-28 13:12 | Observation (INO) | payer MEDICAID, SELFPAY ==
[2019-04-28] VITALS (17 sets, daily range): BP systolic 86–131; BP diastolic 57–89; PULSE 79–127; RESP 18–29; TEMP 36.6–37.2; O2SAT 92–96; BMI 24.8; BMI 24.9; BMI 23.9
--- NOTE | 2019-04-28 13:55 | EKG12_ITS ---
Test Reason : N/V Blood Pressure : / mmHG Vent. Rate : 119 BPM Atrial Rate : 119 BPM P-R Int : 136 ms QRS Dur : 070 ms QT Int : 280 ms P-R-T Axes : 090 029 054 degrees QTc Int : 393 ms Sinus tachycardia Otherwise normal ECG Confirmed by RIC MOMIN, MARKO ([id number]), editorial writer SOFIA VINSON ([id number]) on 04/30/2019 11:52:17 AM Referred By: Yen Goldsmith Confirmed By:MARKO LARIOS MD
--- NOTE | 2019-04-28 14:00 | RAD_ITS ---
STUDY: X-RAY CHEST REASON FOR EXAM: Female, 63 years old. Cough. Nausea. TECHNIQUE: Single AP portable view of the chest. COMPARISON: Comparison is made with prior study dated March 09, 2019. FINDINGS: EKG electrodes are seen. Surgical clips are once again seen overlying the medial right upper lobe. This is unchanged. Stable thickening of the right paratracheal stripe most likely secondary to prior right upper lobe surgery. There is no demonstrated pleural abnormality. Normal size heart. Normal mediastinum and tiago. Normal visualized pulmonary arteries. Normal visualized aortic arch and descending thoracic aorta. Normal visualized thoracic spine. Normal visualized ribs, clavicles, and shoulders. There is no demonstrated abnormality of the visualized soft tissue structures of the upper abdomen. RAD/Chest 1 View (Portable) IMPRESSION: No acute abnormality is seen. Electronically Signed: Ej Clifton, at 14:30 EDT , Service support ,
[2019-04-28] MEDS: Ondansetron 4 MG/2 ML Vial IV (14:22)
[2019-04-28] MEDS: 0.9% Normal Saline 1,000 ML 999 ML IV ×2 (14:22→16:37)
[2019-04-28 14:27] LABS: Hematocrit 30.7 % (37-47); Hemoglobin 10.4 g/dL (12.0-15.0); Mean Corp Hgb Conc 33.9 g/dL (32-36); Mean Corpuscular Hgb 29.7 pg (27.0-32.0); Mean Corpuscular Volume 87.7 fL (81-99); Mean Platelet Vol. 10.5 fl (6.2-12.0); POSITIVE MORPHOLOGY YES; Platelet Count 187 K/mm3 (150-450); RBC Distribution Width CV 16.5 % (11.6-14.6); White Blood Count 7.2 K/mm3 (4.4-11.0)
[2019-04-28 14:29] LABS: Differential Indicated MANUAL DIFF
[2019-04-28] MEDS: Ipratropium/Albuterol Sulfate 3 ML AMPUL.NEB INHALATION ×2 (14:34→19:22)
[2019-04-28 14:37] LABS: International Normalized Ratio 1.8; Partial Thromboplast Time 31.5 Seconds (24.1-36.2); Prothrombin Time (Protime)PT. 20.5 SECONDS (11.7-14.9)
[2019-04-28 14:46] LABS: ALB/GLOB Ratio 0.5 RATIO (0.9-2.4); AST(SGOT) 24 U/L (15-37); Alanine Aminotransfer ALT/SGPT 30 U/L (13-56); Albumin, Serum 2.6 g/dL (3.2-5.0); Alkaline Phosphatase 113 U/L (45-117); Anion Gap 10 (5-15); BUN 23 mg/dL (7-18); Calcium,Total 8.5 mg/dL (8.5-10.1); Chloride 106 mmol/L (98-107); Creatinine, Serum 1.91 mg/dL (0.55-1.02); EST Glomerular Filtration Rate 28 mL/min (>60); Est Glom Filt Rate - Afr Amer 34 mL/min (>60); Estimated Creatinine Clearance 23.84 ml/min; Globulin 4.8 g/dL (2.2-4.2); Glucose 141 mg/dL (74-106); Potassium 4.5 mmol/L (3.5-5.1); Protein, Total 7.4 g/dL (6.4-8.2); Sodium Level 136 mmol/L (136-145)
--- NOTE | 2019-04-28 14:50 | ED.RN ---
LACTIC 2.0. MD AWARE.
[2019-04-28 14:51] LABS: Lymphocyte 14 % (19-41); Metamyelocyte 1 % (0-1); Monocyte 13 % (0-10); Neutrophil-Band 2 % (0-5); Neutrophil-Segmented 69 % (47-70); Plasma Cell 1 %; Total Cells Counted 100 (MANUAL DIFF)
[2019-04-28 14:52] LABS: Hypochromasia 1+; Platelet Estimate ADEQUATE (ADEQ); Polychromasia RARE
--- NOTE | 2019-04-28 14:52 | ED.VISSUMM ---
- ER Visit Summary Date of Service: 04/28/19 Chief Complaint: Nausea cough History of Present Illness: The patient is a 63 F who has a history of lung cancer. She status post a right lobectomy. She last had chemotherapy on April 07. She states that for a while after getting chemotherapy she usually has nausea. However this is persisted. Her daughter recently diagnosed with bronchitis and she notes that her cough is more than she was sputum is not different. She states that she tries to do aerosols at home but they also make her nauseated. She notes decreased p.o. intake and global weakness. Food does not taste good. She is on Xarelto for arm DVT Physical Examination: Afebrile heart rate 127 blood pressure 89/58 respirations are 20 pulse ox 93% on room air Gen: Well-nourished well-developed Head: Normocephalic atraumatic Eyes: Perrl EOMI ENT: TMs clear no rhinorrhea moist mucous membranes patient has evidence of thrush in the oral pharyngeal examination Neck: Supple no lymphadenopathy no JVD nontender CVS: Regular rate rhythm no murmurs normal S1-S2 Respiratory: Rhonchi with faint expiratory wheezes chest nontender Abdomen: Soft nontender nondistended normal bowel sounds no masses Back: Nontender Extremity: Nontender no edema there appears to be a superficial femoral phlebitis of the right distal forearm. There is no significant hand or arm swelling. Skin: Normal color no rash Neuro: alert orientated ?3 CN II-XII intact normal strength sensation Psych: Normal affect normal mood Test Results: EKG shows a sinus tachycardia at a rate of 119. BUN 23/Cr 1.91. Lactic acid 2. Chest XR negative for infiltrate. Emergency Department Course and Treatment: [] Impression: 1. COPD Exacerbation 2. Acute Kidney Injury 3. Dehydration 4. Hypotension 5. Thrush This note was generated with [employer] dictation software. It may contain incorrect words, spelling, and punctuation that were not noted in review of the chart prior to signing ED Disposition - Plan for ED Patient: Referrals: Fausto Butt MD [Primary Care Provider] -
[2019-04-28 14:53] LABS: Absolute Neutrophil Count 5.1 X10^3/uL (2.0-7.7)
[2019-04-28] MEDS: MethylPREDNISolone 125 MG/2 ML Vial IV ×2 (15:03→15:04)
[2019-04-28 15:26] LABS: Mucous, Urine 0 SEEN /hpf (<or=2+); Red Blood Cells-Urine 0 SEEN /hpf (0-5)
[2019-04-28 15:42] LABS: Color, Urine Yellow (Yellow); Glucose, Dipstick Normal (Normal); Ketone-Dipstick Negative (Negative); Leukocyte Esterase-Dipstick 25 /ul (Negative); Nitrite-Dipstick Negative (Negative); Occult Blood-Urine 25 /ul (Negative); Protein-Dipstick 100 mg/dl (Negative); Urine Bilirubin Dipstick Negative (Negative); Urine Clarity Sl. Cloudy (Clear); Urine Urobilinogen Normal (Normal)
[2019-04-28 15:54] LABS: Bacteria 1+ /hpf (None Seen); Squamous Epithelial Cells - UA 0-5 SEEN /hpf (5-10); White Blood Cells 0-5 SEEN /hpf (0-5)
[2019-04-28 15:57] LABS: Coarse Granular Cast 10-25 SEEN /lpf (0-5 /lpf)
[2019-04-28 15:58] LABS: Hyaline Cast 0-5 SEEN /lpf (0-5)
[2019-04-28] MEDS: NYSTATIN 500,000 UNIT/5 ML UDC 500000 UNIT PO ×3 (16:13→22:31)
--- NOTE | 2019-04-28 16:39 | PCM.HP.STD ---
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 The patient is a 63 year old F with past medical history as mentioned above presented to the emergency room because of cough, mild shortness of breath and nausea. Her main symptoms has been going on for 4 to 5 days, started after her daughter was diagnosed with bronchitis, cough was productive with moderate amount of yellow sputum, associated with mild exertional shortness of breath as well as weakness and nausea and without aggravating or relieving factors. She received last chemotherapy for non-small cell lung cancer on April 17 and since then, she has been having persistent nausea without vomiting and she has not been able to eat or drink sufficiently over the last couple of weeks. She denies abdominal pain, fever or chills. She denied chest pain, palpitation, dizziness or lightheadedness. Upon arrival to ED, patient was afebrile, was tachycardic and hypotensive. She received bolus of IV fluids and her blood pressure as well as heart rate improved. Her routine blood work was remarkable for hemoglobin of 10.4 g/dL, BUN of 23 and creatinine 1.91. Her troponin was negative. LFT was unremarkable. Lactic acid was 2. Urinalysis revealed cloudy urine, negative for nitrite, there was only 25 leukocyte esterase, there was 0-5 WBCs and 1+ bacteria. Chest x-ray showed no acute infiltrate or consolidation. She is being admitted for acute kidney injury, mild acute COPD exacerbation likely triggered by suspected bronchitis and also found to have oral thrush. Past Medical History Past Medical History (Chronic Problems): Chronic Problems Superficial thrombophlebitis of right upper extremity (Chronic) COPD (chronic obstructive pulmonary disease) (Chronic) Hyperlipidemia (Chronic) Hypertension (Chronic) Non-small cell lung cancer (Chronic) Allergies codeine Adverse Reaction (Verified 04/28/19 13:15) Nausea verapamil Adverse Reaction (Verified 04/28/19 13:15) Nausea/Vom/Diarrhea Home Medications: Ambulatory Orders Medication Instructions Recorded Diltiazem HCl [Diltiazem ER] 240 mg PO DAILY 06/26/15 Albuterol Inhaler [Ventolin Hfa 2 puff INHALATION Q6H PRN PRN 08/20/16 (SP)] Lisinopril [Zestril] 10 mg PO DAILY 04/28/19 Ondansetron [Ondansetron Odt] 8 mg PO Q8H PRN PRN 04/28/19 Rivaroxaban [Xarelto] 20 mg PO DAILY 04/28/19 Surgical History: colectomy, - - Lung resection. 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 Denies: Difficulty Hearing, Ear Pain, Eye Pain Cardiovascular: Denies: Chest Pain, Claudication, Chest Pressure, Edema, Heaviness, Light Headedness, Palpitations, Syncope Respiratory: Reports: Cough, Shortness of Breath, Sputum production. Denies: Hemoptysis, Pleuritic Pain, Wheezing Gastrointestinal: Reports: Nausea. Denies: Abdominal Pain, Constipation, Diarrhea, Vomiting Genitourinary: Denies: Dysuria, Frequency, Hematuria Musculoskeletal: Denies: Arm Pain, Back Pain, Foot Pain Skin: Denies: Dryness, Rash Neurological: Denies: Balance problems, Blurred vision, Double vision, Change in Speech, Slurred speech, Confusion, Headaches, Incoordination, Numbness Psychiatric: Denies: Anxiety, Depression Endocrine: Denies: Change in Body Habitus, Heat/ Cold Intolerance, Polyuria VTE Information - Inpt Only VTE Present on Admission: No VTE Mechan Device Prophylaxis: None VTE Pharm Prophylaxis ordered?: No Patient Problems: Active and Suspected Problems Oral thrush (Acute) Intractable nausea and vomiting (Acute) Acute kidney injury (Acute) Mild acute COPD exacerbation (Acute) Acute bronchitis (Suspected) - Physical Exam General: Alert, Oriented x3, Cooperative, No apparent distress HEENT: Atraumatic, PERRLA, EOMI, Normocephalic Oral: Moist Mucosa, No Gingival or Mucosal Lesions/ Ulcerations Neck: Supple, No JVD, Negative Carotid Bruits, Trachea Midline, Thyroid Normal Size and Texture Lungs: No wheeze, No rales, Diminished, Rhonchi, - - Decreased breath sounds bilateral, more marked on the right upper zone, bilateral rhonchi. Cardiovascular: Regular rate, Regular Rhythm, Normal S1, Normal S2, No murmurs, PMI Normal, Tachycardic Abdomen: Bowel Sounds Present, Soft, Non Tender, Non-Distended, No Hepato-splenomegaly Extremities: No clubbing, No cyanosis, No edema Skin: No rashes, No breakdown Lymphatic: No Cervical, Supraclavicular, or Inguinal Adenopathy Neurological: Cranial nerves II-XII grossly intact, Motor Exam 5/5 strength throughout Psych/Mental Status: Normal Affect, Appropriate, Alert and oriented to time, place, person, mood and affect Vital Signs Temp Pulse Resp BP Pulse Ox 98.1 F 106 H 20 H 98/74 94 04/28/19 16:17 04/28/19 16:38 04/28/19 16:38 04/28/19 16:38 04/28/19 16:38 Oxygen Flow Rate (L/min) 2 Oxygen Delivery Method Room Air Weight: 136 lb Body Mass Index (BMI) 24.8 Intake and Output for Last 24 Hours 04/26/19 04/27/19 04/28/19 23:59 23:59 23:59 Intake Total 1000 / 1000 Balance 1000 / 1000 Laboratory Tests Past 24 Hrs 04/28/19 04/28/19 04/28/19 14:15 14:15 14:15 WBC 7.2 RBC 3.50 L Hgb 10.4 L Hct 30.7 L MCV 87.7 MCH 29.7 MCHC 33.9 RDW Std Deviation 51.0 H RDW Coeff of Felipe 16.5 H Plt Count 187 MPV 10.5 Neut % (Auto) Not Reportable Absolute Neuts (auto) 5.1 Absolute Lymphs (auto) 1.00 Total Counted 100 Neutrophils % (Manual) 69 Band Neutrophils % 2 Lymphocytes % (Manual) 14 L Monocytes % (Manual) 13 H Metamyelocytes % 1 Plasma Cell % (Manual) 1 Diff Path Review May foll Platelet Estimate ADEQUATE Polychromasia RARE Hypochromasia 1+ PT 20.5 H INR 1.8 APTT 31.5 Sodium 136 Potassium 4.5 Chloride 106 Carbon Dioxide 20.0 L Anion Gap 10 BUN 23 H Creatinine 1.91 H Estim Creat Clear Calc 23.84 Est GFR (MDRD) Af Amer 34 L Est GFR (MDRD) Non-Af 28 L BUN/Creatinine Ratio 12.0 Glucose 141 H Lactic Acid Calcium 8.5 Total Bilirubin 0.50 AST 24 ALT 30 Alkaline Phosphatase 113 Troponin I < 0.015 Total Protein 7.4 Albumin 2.6 L Globulin 4.8 H Albumin/Globulin Ratio 0.5 L Urine Color Urine Clarity Urine pH Ur Specific Cypress Urine Protein Urine Glucose (UA) Urine Ketones Urine Occult Blood Urine Nitrite Urine Bilirubin Urine Urobilinogen Ur Leukocyte Esterase Urine RBC Urine WBC Ur Squamous Epith Cells Urine Bacteria Hyaline Casts Coarse Granular Casts Urine Mucus 04/28/19 04/28/19 14:15 15:20 WBC RBC Hgb Hct MCV MCH MCHC RDW Std Deviation RDW Coeff of Felipe Plt Count MPV Neut % (Auto) Absolute Neuts (auto) Absolute Lymphs (auto) Total Counted Neutrophils % (Manual) Band Neutrophils % Lymphocytes % (Manual) Monocytes % (Manual) Metamyelocytes % Plasma Cell % (Manual) Diff Path Review Platelet Estimate Polychromasia Hypochromasia PT INR APTT Sodium Potassium Chloride Carbon Dioxide Anion Gap BUN Creatinine Estim Creat Clear Calc Est GFR (MDRD) Af Amer Est GFR (MDRD) Non-Af BUN/Creatinine Ratio Glucose Lactic Acid 2.0 Calcium Total Bilirubin AST ALT Alkaline Phosphatase Troponin I Total Protein Albumin Globulin Albumin/Globulin Ratio Urine Color Yellow Urine Clarity Sl. Cloudy Urine pH 5.0 Ur Specific Cypress 1.020 Urine Protein 100 H Urine Glucose (UA) Normal Urine Ketones Negative Urine Occult Blood 25 H Urine Nitrite Negative Urine Bilirubin Negative Urine Urobilinogen Normal Ur Leukocyte Esterase 25 H Urine RBC 0 SEEN Urine WBC 0-5 SEEN Ur Squamous Epith Cells 0-5 SEEN Urine Bacteria 1+ Hyaline Casts 0-5 SEEN Coarse Granular Casts 10-25 SEEN Urine Mucus 0 SEEN Clinical Impression(s) from Imaging Studies Chest X-Ray 04/28/19 14:00 IMPRESSION: No acute abnormality is seen. Electronically Signed: Ej Clifton, at 14:30 EDT , Service support , Assessment/Plan All Active Problems Oral thrush (Acute) Intractable nausea and vomiting (Acute) Acute kidney injury (Acute) Mild acute COPD exacerbation (Acute) This is a 62 years old female patient presented to the emergency room because of cough, shortness of breath and nausea, found to have acute kidney injury attributed to dehydration and poor oral intake secondary to intractable nausea and also found to have probable acute bronchitis with acute COPD exacerbation and also found to have oral thrush and she is being admitted for treatment. #1 acute kidney injury: Probably prerenal secondary to poor oral intake because of intractable nausea. Baseline kidney function is normal. Admission creatinine is 1.91. Initially, patient was tachycardic and hypotensive but improved with IV fluid bolus. Plan: Admit to PCU, IV fluids with lactated Ringer's, IV antiemetics, regular diet, encourage oral intake, avoid nephrotoxic drugs, repeat CBC and BMP tomorrow morning, PT OT evaluation and treatment. #2 mild acute COPD exacerbation/probable acute bronchitis: Chest x-ray reviewed, no acute findings. Plan: Respiratory panel for viruses, DuoNeb every 6 hours, albuterol as needed, sputum culture, start IV Levaquin, chest physiotherapy, incentive spirometer. #3 oral thrush: Secondary to being a cancer patient, immune compromised. Plan to start nystatin oral suspension every 6 hours. #4 intractable nausea without vomiting: Chronic, attributed to chemotherapy. Plan: IV Zofran PRN, IV Phenergan. #5 non-small cell lung cancer: Status post right lobectomy, currently on chemotherapy. Last treatment was on April 17. #6 recent history of superficial thrombophlebitis of the right upper extremity: Patient was started on Xarelto although venous Doppler of the right upper extremity that was done on April 07 revealed no evidence of acute DVT of the right upper extremity. Patient mentioned that her oncologist started her on Xarelto. At this time, I will continue Xarelto and I recommended patient to talk to her oncologist upon follow-up to inquire about continuation of anti-coagulation. #7 hypertension: At this time, blood pressure improved after IV fluid bolus. Plan to hold Cardizem and lisinopril, IV fluids as above. #8 hyperlipidemia: She is not on statins. #9 DVT prophylaxis: Continue Xarelto as above. This note was generated with [employer] dictation software. It may contain incorrect words, spelling, and punctuation that were not noted in checking the note before signing. Code Visit Inpatient E&M: 77800 Init Hosp L3
[2019-04-28] MEDS: levoFLOXacin IV 500 MG/100 ML BAG 100 MG IV (17:52)
[2019-04-28 18:21] LABS: Reflex Lactate? Y
[2019-04-28] MEDS: Lactated Ringers 1,000 ML 100 ML IV (19:01)
[2019-04-28 19:54] LABS: Lactic Acid 2.1 mmol/L (0.4-2.0)
[2019-04-28] MEDS: Rivaroxaban 20 MG Tablet PO (22:31)
[2019-04-28 23:44] LABS: Lactic Acid 2.3 mmol/L (0.4-2.0)
[2019-04-29] VITALS (11 sets, daily range): BP systolic 135–156; BP diastolic 73–93; PULSE 72–116; RESP 16–20; TEMP 36.6–37; O2SAT 95–97
[2019-04-29] MEDS: Ondansetron 4 MG/2 ML Vial IV (01:43)
[2019-04-29] MEDS: Ipratropium/Albuterol Sulfate 3 ML AMPUL.NEB INHALATION ×3 (02:22→13:21)
[2019-04-29 03:15] LABS: Reflex Lactate? Y
[2019-04-29 04:13] LABS: Hemoglobin 8.4 g/dL (12.0-15.0); Mean Corp Hgb Conc 32.3 g/dL (32-36); Mean Corpuscular Hgb 28.6 pg (27.0-32.0); Mean Corpuscular Volume 88.4 fL (81-99); Mean Platelet Vol. 10.3 fl (6.2-12.0); POSITIVE COUNT YES; POSITIVE DIFFERENTIAL YES; POSITIVE MORPHOLOGY YES; Platelet Count 159 K/mm3 (150-450); RBC Distribution Width CV 16.5 % (11.6-14.6); RBC Distribution Width SD 52.6 fl (35.1-43.9); Red Blood Count 2.94 M/mm3 (4.2-5.4); White Blood Count 4.2 K/mm3 (4.4-11.0)
[2019-04-29 04:42] LABS: Anion Gap 12 (5-15); BUN 20 mg/dL (7-18); BUN/Creat Ratio 15.9 RATIO (10-20); Calcium,Total 7.9 mg/dL (8.5-10.1); Chloride 109 mmol/L (98-107); Creatinine, Serum 1.26 mg/dL (0.55-1.02); EST Glomerular Filtration Rate 46 mL/min (>60); Est Glom Filt Rate - Afr Amer 55 mL/min (>60); Estimated Creatinine Clearance 36.14 ml/min; Glucose 219 mg/dL (74-106); Potassium 4.1 mmol/L (3.5-5.1); Sodium Level 136 mmol/L (136-145)
[2019-04-29 04:45] LABS: Lactic Acid 2.8 mmol/L (0.4-2.0)
[2019-04-29] MEDS: Lactated Ringers 1,000 ML 100 ML IV (05:01)
[2019-04-29 05:04] LABS: Differential Indicated MANUAL DIFF
[2019-04-29 07:36] LABS: Lymphocyte 13 % (19-41); Metamyelocyte 2 % (0-1); Monocyte 6 % (0-10); Neutrophil-Segmented 79 % (47-70); Platelet Estimate ADEQUATE (ADEQ); Red Cell Morphology NORM C+C NORMAL (NORM C&C); Total Cells Counted 100 (MANUAL DIFF)
[2019-04-29 07:37] LABS: Absolute Lymphocyte Count 0.55 X10^3/uL (0.83-4.51); Absolute Neutrophil Count 3.3 X10^3/uL (2.0-7.7); Lymphocyte # 0.55 X10^3/ul (4.0)
[2019-04-29 08:41] LABS: Lactic Acid 2.3 mmol/L (0.4-2.0)
[2019-04-29] MEDS: NYSTATIN 500,000 UNIT/5 ML UDC 500000 UNIT PO (09:42)
[2019-04-29] MEDS: levoFLOXacin IV 250 MG/50 ML BAG 50 MG IV (09:44)
--- NOTE | 2019-04-29 10:37 | CASEMGMT ---
GILDA DASH assessment: Face to Face with patient for initial transition planning/care coordination assessment. GILDA DASH introduced self and role at [facility], pt voices understanding and consents to assessment at this time. Pt is sitting up in bed in no distress at this time. Pt is A/Ox4 at this time and answers all questions appropriately at this time. Care providers, pharmacy, and demographics verified at this time. PCP: Daquan Specialists: Arsalan, onc, Rafita, cardiothoracic, and pulm at [facility] Preferred Pharmacy: [facility] Insurance: Garcia Prescription Benefit: Garcia Living Will/HPOA: Pt states has LW/HPOA and is aware that it is not on file at [facility] at this time. Pt states that her daughter, Samantha Rodriguez, is HPOA. LNOK: Samantha Rodriguez, daughter Living Arrangements: Pt states lives at daughters apartment on the main level at this time and states no concerns at home at this time. Pt states is independent with ADL's. Transportation: Pt states drives self and states no transportation concerns at this time. DME/HHC: Pt states has a nebulizer and states no need for any further DME at this time. Pt states no hx of HHC or SNF in the past. Pt states no concerns with going home at time of discharge. Pt states has been unemployed since November due to health problems. Pt states does not smoke(but did in the past) and drinks ETOH occasionally. Pt states no further concerns/needs at this time. CM to follow for any further discharge planning/needs. Advised pt to ask for CM if any further questions/concerns/needs arise, voices understanding. Pt Goal: Home Plan[place] GILDA DASH
--- NOTE | 2019-04-29 11:24 | DCINST_ITS ---
- Discharge Diagnoses Current Active Problems: Current Active and Chronic Problems Oral thrush (Acute) Intractable nausea and vomiting (Acute) Acute kidney injury (Acute) Mild acute COPD exacerbation (Acute) Superficial thrombophlebitis of right upper extremity (Chronic) COPD (chronic obstructive pulmonary disease) (Chronic) Hyperlipidemia (Chronic) Hypertension (Chronic) Non-small cell lung cancer (Chronic) You will use the following diet at home:: No restrictions Your food should be the consistency of: Regular Your liquids should be the consistency of: Regular/Thin Discharge Activity: Return to Normal Activity Allergies/Adverse Reactions: Allergies codeine Adverse Reaction (Verified 04/28/19 13:15) Nausea verapamil Adverse Reaction (Verified 04/28/19 13:15) Nausea/Vom/Diarrhea Medications to take at Discharge Diltiazem HCl [Diltiazem 24Hr ER (LA)] 240 mg PO DAILY 06/26/15 Albuterol Inhaler [Ventolin Hfa] 2 puff INHALATION Q6H PRN PRN 08/20/16 Lisinopril [Zestril] 10 mg PO DAILY 04/28/19 Ondansetron [Ondansetron Odt] 8 mg PO Q8H PRN PRN 04/28/19 Rivaroxaban [Xarelto] 20 mg PO DAILY 04/28/19 Acetaminophen [Tylenol Tablet] 650 mg PO Q6H PRN PRN tablet 04/29/19 Guaifenesin [Robitussin] 20 ml PO Q4H PRN PRN udc 04/29/19 Nystatin 500,000 unit PO 4X/DAY #1 bottle 04/29/19 The following prescriptions were given: Nystatin 500,000 unit PO 4X/DAY #1 bottle Transmission Status: Pending to [id number] Primary Care Physician: Fausto Butt MD [Primary Care Provider] - Please follow up with your Primary Care Physician in: 1-2 weeks Test Results: Test results from this visit will be discussed in further detail at your follow- up appointment, if applicable. Please Follow Up With: Oncology When: As directed Proposed Discharge Date: 04/29/19
--- NOTE | 2019-04-29 11:55 | PHA.DC.COU ---
Pharmacy Services has performed discharge medication counseling for this patient. The patient was counseled on the following discharge medications and changes in medications for homegoing review. 1. NYSTATIN 500,000 UNITS/5ML: 5ML PO 4X/DAY X14 DAYS The Reason for Use, instructions for use, and potential side effects were reviewed for all new medications. The patient's questions regarding all of their medications were answered. The patient was able to verbally demonstrate an understanding of their discharge medications. Home Medications Diltiazem HCl [Diltiazem 24Hr ER (LA)] 240 mg PO DAILY 06/26/15 Albuterol Inhaler [Ventolin Hfa] 2 puff INHALATION Q6H PRN PRN 08/20/16 Lisinopril [Zestril] 10 mg PO DAILY 04/28/19 Ondansetron [Ondansetron Odt] 8 mg PO Q8H PRN PRN 04/28/19 Rivaroxaban [Xarelto] 20 mg PO DAILY 04/28/19 Acetaminophen [Tylenol Tablet] 650 mg PO Q6H PRN PRN tab 04/29/19 Guaifenesin [Robitussin] 20 ml PO Q4H PRN PRN udc 04/29/19 Nystatin 500,000 unit PO 4X/DAY #1 bottle 04/29/19
[2019-04-29 12:13] LABS: Reflex Lactate? Y
--- NOTE | 2019-04-29 15:02 | PCM.DC.SUM ---
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 Operations: None Procedures: None Summary of Care Provided: Hospital Course: The patient is a 63 year old F with pmhx of lung cancer, former smoker, COPD, HTN, HLD, currently being treated with chemo by [facility], who presented to the ER with c/o cough, SOB, nausea and vomiting for the past 4-5 days. She reported her daughter recently had been diagnosed with bronchitis. She was found to have VINAYAK likely 2/2 dehydration from nausea and vomiting, negative CXR, and was felt to have bronchitis. She had no hypoxia. She was admitted to the PCU and placed on levaquin and supportive care. Her symptoms were drastically improved by the next day as well as her renal function. She tested positive for rhinovirus. Antibiotics were discontinued. She was placed on supportive care. She had no increased O2 demand and no further O2 demand. She was discharged home in stable condition and advised to use OTC antitussives and albuterol as needed. She also appeared to have thrush and was given nystatin swish and spit. She will need follow up with her PCP in 1-2 weeks and with her oncologist as directed. This patient was seen by Vince Martin PA-C under the supervision of Dr. Palmer. [] - Physical Exam General: Alert, Oriented x3, Cooperative HEENT: Atraumatic, PERRLA, EOMI, Normocephalic Neck: Supple, No JVD, Negative Carotid Bruits Lungs: Normal air movement, Rhonchi Cardiovascular: Regular rate, No murmurs Abdomen: Bowel Sounds Present, Soft, Non Tender Extremities: No edema, Capillary Refill Less than 3 Seconds Skin: No rashes, No breakdown Musculoskeletal: No Tenderness to Palpation of Joints or Extremities Neurological: Cranial nerves II-XII grossly intact Psych/Mental Status: Normal Affect, Appropriate, Alert and oriented to time, place, person, mood and affect Vital Signs Temp Pulse Resp BP Pulse Ox 98.6 F 79 16 135/77 H 96 04/29/19 09:25 04/29/19 13:35 04/29/19 13:35 04/29/19 09:25 04/29/19 11:52 Oxygen Flow Rate (L/min) 2 Oxygen Delivery Method Room Air Weight: 130 lb 11.746 oz Body Mass Index (BMI) 23.9 Intake and Output for Last 24 Hours 04/27/19 04/28/19 04/29/19 23:59 23:59 23:59 Intake Total 2635 / 2635 2213.33 / 2213.33 Balance 2635 / 2635 2213.33 / 2213.33 Microbiology Past 72 Hours 04/28/19 14:20 Gram Stain - Preliminary Sputum, Expectorated/Coughed Respiratory Culture - Preliminary Appears to be normal respiratory carmenza. Further studies to follow. 04/28/19 15:20 Urine Culture - Preliminary Urine, Clean Catch Presumptive E. coli 04/28/19 19:30 Respiratory Panel (PCR) - Final Mucosa - Nose Rhinovirus Laboratory Tests Past 24 Hrs 04/28/19 04/28/19 04/28/19 15:20 18:40 23:05 WBC RBC Hgb Hct MCV MCH MCHC RDW Std Deviation RDW Coeff of Felipe Plt Count MPV Neut % (Auto) Absolute Neuts (auto) Absolute Lymphs (auto) Total Counted Neutrophils % (Manual) Lymphocytes % (Manual) Monocytes % (Manual) Metamyelocytes % Diff Path Review Platelet Estimate RBC Morphology Sodium Potassium Chloride Carbon Dioxide Anion Gap BUN Creatinine Estim Creat Clear Calc Est GFR (MDRD) Af Amer Est GFR (MDRD) Non-Af BUN/Creatinine Ratio Glucose Lactic Acid 2.1 H 2.3 H Calcium Urine Color Yellow Urine Clarity Sl. Cloudy Urine pH 5.0 Ur Specific [place] 1.020 Urine Protein 100 H Urine Glucose (UA) Normal Urine Ketones Negative Urine Occult Blood 25 H Urine Nitrite Negative Urine Bilirubin Negative Urine Urobilinogen Normal Ur Leukocyte Esterase 25 H Urine RBC 0 SEEN Urine WBC 0-5 SEEN Ur Squamous Epith Cells 0-5 SEEN Urine Bacteria 1+ Hyaline Casts 0-5 SEEN Coarse Granular Casts 10-25 SEEN Urine Mucus 0 SEEN 04/29/19 04/29/19 04/29/19 03:48 03:48 03:48 WBC 4.2 L RBC 2.94 L Hgb 8.4 L Hct 26.0 L MCV 88.4 MCH 28.6 MCHC 32.3 RDW Std Deviation 52.6 H RDW Coeff of Felipe 16.5 H Plt Count 159 MPV 10.3 Neut % (Auto) Not Reportable Absolute Neuts (auto) 3.3 Absolute Lymphs (auto) 0.55 L Total Counted 100 Neutrophils % (Manual) 79 H Lymphocytes % (Manual) 13 L Monocytes % (Manual) 6 Metamyelocytes % 2 H Diff Path Review May foll Platelet Estimate ADEQUATE RBC Morphology NORM C+C Sodium 136 Potassium 4.1 Chloride 109 H Carbon Dioxide 15.0 L Anion Gap 12 BUN 20 H Creatinine 1.26 H Estim Creat Clear Calc 36.14 Est GFR (MDRD) Af Amer 55 L Est GFR (MDRD) Non-Af 46 L BUN/Creatinine Ratio 15.9 Glucose 219 H Lactic Acid 2.8 H Calcium 7.9 L Urine Color Urine Clarity Urine pH Ur Specific [place] Urine Protein Urine Glucose (UA) Urine Ketones Urine Occult Blood Urine Nitrite Urine Bilirubin Urine Urobilinogen Ur Leukocyte Esterase Urine RBC Urine WBC Ur Squamous Epith Cells Urine Bacteria Hyaline Casts Coarse Granular Casts Urine Mucus 04/29/19 08:10 WBC RBC Hgb Hct MCV MCH MCHC RDW Std Deviation RDW Coeff of Felipe Plt Count MPV Neut % (Auto) Absolute Neuts (auto) Absolute Lymphs (auto) Total Counted Neutrophils % (Manual) Lymphocytes % (Manual) Monocytes % (Manual) Metamyelocytes % Diff Path Review Platelet Estimate RBC Morphology Sodium Potassium Chloride Carbon Dioxide Anion Gap BUN Creatinine Estim Creat Clear Calc Est GFR (MDRD) Af Amer Est GFR (MDRD) Non-Af BUN/Creatinine Ratio Glucose Lactic Acid 2.3 H Calcium Urine Color Urine Clarity Urine pH Ur Specific [place] Urine Protein Urine Glucose (UA) Urine Ketones Urine Occult Blood Urine Nitrite Urine Bilirubin Urine Urobilinogen Ur Leukocyte Esterase Urine RBC Urine WBC Ur Squamous Epith Cells Urine Bacteria Hyaline Casts Coarse Granular Casts Urine Mucus Discharge Diet: No Restrictions Discharge Activity: Return to Normal Activity Home Medications: Medications to take at Discharge Diltiazem HCl [Diltiazem 24Hr ER (LA)] 240 mg PO DAILY 06/26/15 Albuterol Inhaler [Ventolin Hfa] 2 puff INHALATION Q6H PRN PRN 08/20/16 Lisinopril [Zestril] 10 mg PO DAILY 04/28/19 Ondansetron [Ondansetron Odt] 8 mg PO Q8H PRN PRN 04/28/19 Rivaroxaban [Xarelto] 20 mg PO DAILY 04/28/19 Acetaminophen [Tylenol Tablet] 650 mg PO Q6H PRN PRN tab 04/29/19 Guaifenesin [Robitussin] 20 ml PO Q4H PRN PRN udc 04/29/19 Nystatin 500,000 unit PO 4X/DAY #1 bottle 04/29/19 Following Prescrptions Were Given to Patient: Nystatin 500,000 unit PO 4X/DAY #1 bottle Transmission Status: Received by [id number] Primary Care Physician: Fausto Butt MD [Primary Care Provider] - Please follow up with your Primary Care Physician in: 1-2 weeks Please Follow Up With: Oncology When: As directed Please Follow Up With: Dr Fausto Butt Disposition: Home Minutes spent on discharge:: 35 Patient Condition:: Stable Medical Necessity - Tobacco Use Smoking Status: Former smoker Tobacco Use: Cigarettes Meaningful Use Info Meaningful Use Diagnoses (Choose all that apply): None applicable <Hoang Palmer - Last Filed: 04/29/19 15:27> Discharge Date and Diagnosis - Primary Discharge Diagnosis Mild COPD exacerbation secondary to acute viral bronchitis secondary to rhinovirus. Sepsis (tachycardia, mild hypotension and lactic acidosis) secondary to acute viral bronchitis, rhinovirus. 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 I have independently interviewed and examined the patient and reviewed pertinent history, examination findings, laboratory and plan of management. I have reviewed the note and agree with the documented findings with the few additional points. In brief, patient is 63-year-old female with history of non-small cell cancer status post right upper lobectomy with last chemotherapy on April 17 admitted with mild shortness of breath, cough productive of yellowish sputum, nausea and vomiting and diarrhea. Chest x-ray does not show acute abnormality. Respiratory panel positive of rhinovirus. Lactic acid positive mainly secondary to dehydration/hypoperfusion from hypovolemia with nausea vomiting and diarrhea and may be contributed from sepsis secondary to acute viral bronchitis, rhinovirus. She also has history of FAP with many family members having early colon cancer and had total colectomy in her 20s. Normally she has loose bowel movement about 2-3 times which got aggravated after chemotherapy about 4-5 times resulting into hypovolemia and dehydration. Patient was also tachycardic, mild hypotensive at the time of admission. Patient has acute kidney injury with admitting BUN/creatinine 23/1.9 which got much better . Patient received aggressive IV fluid resuscitation. Patient has other comorbidities including oral thrush, recent history of superficial thrombo-colitis right upper extremity. Xarelto continued as started by oncologist. Discharge medication reconciliation done. Discharge follow-up instructions completed. Discharge process discussed with the patient and all questions were answered to patient's satisfaction. Patient wants to go home. Admission status was changed to observation. Total time spent, exact 35 minutes on discharge meds reconciliation, examination, review of imaging and blood test and discussion with the patient on follow-up instructions. I have discussed my assessment with Vince PELLETIER and orders have been reviewed. [] Clinical Impression(s) from Imaging Studies Chest X-Ray 04/28/19 14:00 IMPRESSION: No acute abnormality is seen. Microbiology Past 72 Hours 04/28/19 14:20 Sputum, Expectorated/Coughed Gram Stain - Preliminary 04/28/19 14:20 Sputum, Expectorated/Coughed Respiratory Culture - Preliminary Appears to be normal respiratory carmenza. Further studies to follow. 04/28/19 15:20 Urine, Clean Catch Urine Culture - Preliminary Presumptive E. coli 04/28/19 19:30 Mucosa - Nose Respiratory Panel (PCR) - Final Rhinovirus Laboratory Results 04/28/19 15:20: Urine Color Yellow, Urine Clarity Sl. Cloudy, Urine pH 5.0, Ur Specific [place] 1.020, Urine Protein 100 H, Urine Glucose (UA) Normal, Urine Ketones Negative, Urine Occult Blood 25 H, Urine Nitrite Negative, Urine Bilirubin Negative, Urine Urobilinogen Normal, Ur Leukocyte Esterase 25 H, Urine RBC 0 SEEN, Urine WBC 0-5 SEEN, Ur Squamous Epith Cells 0-5 SEEN, Urine Bacteria 1+, Hyaline Casts 0-5 SEEN, Coarse Granular Casts 10-25 SEEN, Urine Mucus 0 SEEN 04/28/19 18:40: Lactic Acid 2.1 H 04/28/19 23:05: Lactic Acid 2.3 H 04/29/19 03:48: WBC 4.2 L, RBC 2.94 L, Hgb 8.4 L, Hct 26.0 L, MCV 88.4, MCH 28.6, MCHC 32.3, RDW Std Deviation 52.6 H, RDW Coeff of Felipe 16.5 H, Plt Count 159, MPV 10.3, Neut % (Auto) Not Reportable, Absolute Neuts (auto) 3.3, Absolute Lymphs (auto) 0.55 L, Total Counted 100, Neutrophils % (Manual) 79 H, Lymphocytes % (Manual) 13 L, Monocytes % (Manual) 6, Metamyelocytes % 2 H, Diff Path Review January, Platelet Estimate ADEQUATE, RBC Morphology NORM C+C 04/29/19 03:48: Sodium 136, Potassium 4.1, Chloride 109 H, Carbon Dioxide 15.0 L, Anion Gap 12, BUN 20 H, Creatinine 1.26 H, Estim Creat Clear Calc 36.14, Est GFR (MDRD) Af Amer 55 L, Est GFR (MDRD) Non-Af 46 L, BUN/Creatinine Ratio 15.9, Glucose 219 H, Calcium 7.9 L 04/29/19 03:48: Lactic Acid 2.8 H 04/29/19 08:10: Lactic Acid 2.3 H Subjective: Seen and examined. Patient has history of COPD and non-small cell lung cancer of right lung status post right upper lobectomy with last chemotherapy on April 17 came to ER with cough, mild shortness of breath and nausea for 4 to 5 days. She probably got from her daughter also had similar symptoms with bronchitis. She improved on conservative treatment. Her shortness of breath has resolved. She also has thrush secondary to chemotherapy, and dehydration with acute kidney injury from hypovolemia, prerenal etiology. - Physical Exam General: Alert, Oriented x3, Cooperative HEENT: Atraumatic, PERRLA, EOMI, Normocephalic Neck: Supple, No JVD, Negative Carotid Bruits Lungs: Diminished - Air entry is diminished mainly on right side., Rhonchi Cardiovascular: Regular rate, Regular Rhythm, Normal S1, Normal S2, No murmurs Abdomen: Bowel Sounds Present, Soft, Non Tender, Non-Distended Extremities: No edema, Capillary Refill Less than 3 Seconds Skin: No rashes, No breakdown Musculoskeletal: No Tenderness to Palpation of Joints or Extremities, Arthritic Changes Neurological: Cranial nerves II-XII grossly intact, Deep Tendon Reflexes 2+/4 and Symmetrical, Motor Exam 5/5 strength throughout Psych/Mental Status: Normal Affect, Appropriate Vital Signs Temp Pulse Resp BP Pulse Ox 98.6 F 79 16 135/77 H 96 04/29/19 09:25 04/29/19 13:35 04/29/19 13:35 04/29/19 09:25 04/29/19 11:52 Oxygen Flow Rate (L/min) 2 Oxygen Delivery Method Room Air Weight: 130 lb 11.746 oz Body Mass Index (BMI) 23.9 Intake and Output for Last 24 Hours 04/27/19 04/28/19 04/29/19 23:59 23:59 23:59 Intake Total 2635 / 2635 2213.33 / 2213.33 Balance 2635 / 2635 2213.33 / 2213.33 Microbiology Past 72 Hours 04/28/19 14:20 Gram Stain - Preliminary Sputum, Expectorated/Coughed Respiratory Culture - Preliminary Appears to be normal respiratory carmenza. Further studies to follow. 04/28/19 15:20 Urine Culture - Preliminary Urine, Clean Catch Presumptive E. coli 04/28/19 19:30 Respiratory Panel (PCR) - Final Mucosa - Nose Rhinovirus Laboratory Tests Past 24 Hrs 04/28/19 04/28/19 04/28/19 15:20 18:40 23:05 WBC RBC Hgb Hct MCV MCH MCHC RDW Std Deviation RDW Coeff of Felipe Plt Count MPV Neut % (Auto) Absolute Neuts (auto) Absolute Lymphs (auto) Total Counted Neutrophils % (Manual) Lymphocytes % (Manual) Monocytes % (Manual) Metamyelocytes % Diff Path Review Platelet Estimate RBC Morphology Sodium Potassium Chloride Carbon Dioxide Anion Gap BUN Creatinine Estim Creat Clear Calc Est GFR (MDRD) Af Amer Est GFR (MDRD) Non-Af BUN/Creatinine Ratio Glucose Lactic Acid 2.1 H 2.3 H Calcium Urine Color Yellow Urine Clarity Sl. Cloudy Urine pH 5.0 Ur Specific [place] 1.020 Urine Protein 100 H Urine Glucose (UA) Normal Urine Ketones Negative Urine Occult Blood 25 H Urine Nitrite Negative Urine Bilirubin Negative Urine Urobilinogen Normal Ur Leukocyte Esterase 25 H Urine RBC 0 SEEN Urine WBC 0-5 SEEN Ur Squamous Epith Cells 0-5 SEEN Urine Bacteria 1+ Hyaline Casts 0-5 SEEN Coarse Granular Casts 10-25 SEEN Urine Mucus 0 SEEN 04/29/19 04/29/19 04/29/19 03:48 03:48 03:48 WBC 4.2 L RBC 2.94 L Hgb 8.4 L Hct 26.0 L MCV 88.4 MCH 28.6 MCHC 32.3 RDW Std Deviation 52.6 H RDW Coeff of Felipe 16.5 H Plt Count 159 MPV 10.3 Neut % (Auto) Not Reportable Absolute Neuts (auto) 3.3 Absolute Lymphs (auto) 0.55 L Total Counted 100 Neutrophils % (Manual) 79 H Lymphocytes % (Manual) 13 L Monocytes % (Manual) 6 Metamyelocytes % 2 H Diff Path Review May foll Platelet Estimate ADEQUATE RBC Morphology NORM C+C Sodium 136 Potassium 4.1 Chloride 109 H Carbon Dioxide 15.0 L Anion Gap 12 BUN 20 H Creatinine 1.26 H Estim Creat Clear Calc 36.14 Est GFR (MDRD) Af Amer 55 L Est GFR (MDRD) Non-Af 46 L BUN/Creatinine Ratio 15.9 Glucose 219 H Lactic Acid 2.8 H Calcium 7.9 L Urine Color Urine Clarity Urine pH Ur Specific [place] Urine Protein Urine Glucose (UA) Urine Ketones Urine Occult Blood Urine Nitrite Urine Bilirubin Urine Urobilinogen Ur Leukocyte Esterase Urine RBC Urine WBC Ur Squamous Epith Cells Urine Bacteria Hyaline Casts Coarse Granular Casts Urine Mucus 04/29/19 08:10 WBC RBC Hgb Hct MCV MCH MCHC RDW Std Deviation RDW Coeff of Felipe Plt Count MPV Neut % (Auto) Absolute Neuts (auto) Absolute Lymphs (auto) Total Counted Neutrophils % (Manual) Lymphocytes % (Manual) Monocytes % (Manual) Metamyelocytes % Diff Path Review Platelet Estimate RBC Morphology Sodium Potassium Chloride Carbon Dioxide Anion Gap BUN Creatinine Estim Creat Clear Calc Est GFR (MDRD) Af Amer Est GFR (MDRD) Non-Af BUN/Creatinine Ratio Glucose Lactic Acid 2.3 H Calcium Urine Color Urine Clarity Urine pH Ur Specific [place] Urine Protein Urine Glucose (UA) Urine Ketones Urine Occult Blood Urine Nitrite Urine Bilirubin Urine Urobilinogen Ur Leukocyte Esterase Urine RBC Urine WBC Ur Squamous Epith Cells Urine Bacteria Hyaline Casts Coarse Granular Casts Urine Mucus Code Visit OBSV E&M: [id number] Observation care discharge
[2019-05-01 08:04] LABS: Pathologist Review Reviewed
[2019-05-01 08:23] LABS: Pathologist Review Reviewed
== END 2019-04-29 15:10 | disposition home or self-care (01) ==
LOC: ED 14:02 → PCU 04-29 06:28
PROVIDERS: Family Medicine; Admitting Provider Hospitalist; Emergency Provider Emergency Medicine; Family Provider Family Medicine; PCP Family Medicine; Referring Provider Hospitalist; Visit Provider Internal Medicine
DX: J44.0 Chronic obstructive pulmonary disease with (acute) lower respiratory infection (principal); J20.6 Acute bronchitis due to rhinovirus; J44.1 Chronic obstructive pulmonary disease with (acute) exacerbation; E86.0 Dehydration; I95.9 Hypotension, unspecified; B37.0 Candidal stomatitis; N17.9 Acute kidney failure, unspecified; D64.9 Anemia, unspecified; E78.5 Hyperlipidemia, unspecified; I10 Essential (primary) hypertension; C34.91 Malignant neoplasm of unspecified part of right bronchus or lung; Z79.899 Other long term (current) drug therapy; Z79.01 Long term (current) use of anticoagulants; Z86.718 Personal history of other venous thrombosis and embolism; Z87.891 Personal history of nicotine dependence; R00.0 Tachycardia, unspecified; E87.2 Acidosis
CPT/HCPCS: 36415; 71045; 80048; 80053; 81001; 83605; 84484; 85025; 85610; 85730; 87040; 87070; 87077; 87086; 87088; 87186; 87205; 87633; 93005; 94640; 94667; 96361; 96365; 96366; 96367; 96375; 96376; 97161; 97802; 99218; 99285; J7030; J7050; J7120; A4216; G0378; J2405

== ENCOUNTER 2019-05-14 15:37 | Observation (INO) | payer MEDICAID, SELFPAY ==
[2019-04-28 17:02] VITALS: BMI 23.9
[2019-05-14 15:38] VITALS: BP 125/88; PULSE 105; RESP 16; TEMP 37.2; O2SAT 95; BMI 23.8
--- NOTE | 2019-05-14 15:48 | CT_ITS ---
STUDY: CT ABDOMEN AND PELVIS WITHOUT CONTRAST REASON FOR EXAM: Female, 63 years old. Right flank pain. Recent renal injury from chemotherapy. Non-small lung cancer. RADIATION DOSAGE (If Supplied By Facility): CTDIvol = ( 6.15 ) mGy, DLP = ( 294.96 ) mGycm TECHNIQUE: Transaxial images were obtained from the dome of the diaphragm to the symphysis pubis without oral contrast, and without intravenous contrast. Sagittal and coronal images were reconstructed. Individualized dose optimization techniques were used for this CT. COMPARISON: None. FINDINGS: There are chronic interstitial fibrotic changes of the lung bases. The visualized portions of the heart are within normal limits. Normal liver. Normal gallbladder and extrahepatic biliary system. Normal spleen. Normal pancreas. There is left adrenal enlargement with 1.7 cm nodule. Normal right kidney. Normal left kidney. No stones or hydronephrosis. Normal visualized stomach. Mild fluid distention of small intestine. There is postoperative change of the sigmoid colon. There is non-visualization of the appendix. There is diffuse atherosclerotic calcification of the abdominal aorta, without a demonstrated aneurysm. Normal inferior vena cava. Normal retroperitoneum. Normal urinary bladder. There is atrophy of the uterus. There is no free fluid in the abdomen or pelvis. Normal abdominal wall. Mild degenerative change of the spine. CT/Abdomen/Pelvis without Cont IMPRESSION: No stones or hydronephrosis. Postoperative changes of the colon. Mild fluid distention of small bowel suggesting ileus or partial obstruction. Fibrotic densities of the lower lungs. Left adrenal nodule. Electronically Signed: Panfilo Rudolph MD at 17:22 EDT , Service support ,
--- NOTE | 2019-05-14 15:49 | ED.DCSUM_ITS ---
- ER Visit Summary Date of Service: 05/14/19 Chief Complaint: Flank pain History of Present Illness: The patient is a 63 F with right flank pain today that started suddenly at 6 AM. It is severe. Associated with nausea. She has a history of non-small cell lung cancer and was treated with chemotherapy. She has completed her therapy. She was admitted about 2 weeks ago here for acute kidney injury. No history of kidney stones. No other urinary symptoms. No fever. Physical Examination: Afebrile and vital signs unremarkable except for heart rate of 105. The patient appears to have pain with movement. She is otherwise alert and oriented. No acute distress. Heart regular. Lungs clear. Abdomen is soft and nontender. CVA tender on the right and extending down into the area of the right SI joint. Overlying skin is normal. Neurovascular intact distally. Test Results: CT, labs, urinalysis pending. Emergency Department Course and Treatment: Patient treated with fluids, morphine, and Zofran while awaiting results. CT showed an ileus or partial bowel obstruction. There is a left adrenal nodule and fibrotic changes of the lungs. Labs appeared stable. Urinalysis was unremarkable. Patient was discussed with the hospitalist, and also surgery. Surgery advised repeat CT with p.o. and IV contrast. Hospitalist will admit for observation. Treatment Plan: As above Disposition: Admission Impression: 1. Partial small bowel obstruction This note was generated with [employer] dictation software. It may contain incorrect words, spelling, and punctuation that were not noted in review of the chart prior to signing ED Disposition - Plan for ED Patient: Referrals: Fausto Butt MD [Primary Care Provider] -
[2019-05-14] MEDS: Ondansetron 4 MG/2 ML Vial IV (16:33)
[2019-05-14] MEDS: 0.9% Normal Saline 1,000 ML 1000 ML IV (16:33)
[2019-05-14] MEDS: HYDROmorphone 1 MG/ML Syringe IV (16:33)
[2019-05-14 16:43] LABS: Absolute Lymphocyte Count 1.67 X10^3/uL (0.83-4.51); Absolute Neutrophil Count 7.7 X10^3/uL (2.0-7.7); Basophil# 0.06 X10^3/uL; Basophil% 0.6 % (0-1); Eosinophil# 0.01 X10^3/uL; Eosinophils% 0.1 % (0-5); Hematocrit 29.9 % (37-47); Hemoglobin 9.7 g/dL (12.0-15.0); Lymphocyte # 1.67 X10^3/ul (4.0); Lymphocyte % 15.6 % (19-41); Mean Corp Hgb Conc 32.4 g/dL (32-36); Mean Corpuscular Hgb 30.3 pg (27.0-32.0); Mean Corpuscular Volume 93.4 fL (81-99); Mean Platelet Vol. 9.6 fl (6.2-12.0); Monocyte# 1.18 X10^3/uL; NRBC Flagged by Analyzer 0 % (0-5); Neutrophil # 7.66 X10^3/uL (2.7-7.7); Neutrophil % 71.7 % (47-70); POSITIVE MORPHOLOGY YES; Platelet Count 302 K/mm3 (150-450); RBC Distribution Width CV 19.4 % (11.6-14.6); RBC Distribution Width SD 65.5 fl (35.1-43.9); White Blood Count 10.7 K/mm3 (4.4-11.0)
[2019-05-14 16:45] LABS: Bacteria 0 SEEN /hpf (None Seen); Mucous, Urine 0 SEEN /hpf (<or=2+)
[2019-05-14 16:46] LABS: Anion Gap 8 (5-15); BUN 8 mg/dL (7-18); BUN/Creat Ratio 6.6 RATIO (10-20); Calcium,Total 8.4 mg/dL (8.5-10.1); Chloride 103 mmol/L (98-107); Creatinine, Serum 1.21 mg/dL (0.55-1.02); Differential Indicated SCAN CRITERIA MET; EST Glomerular Filtration Rate 48 mL/min (>60); Est Glom Filt Rate - Afr Amer 58 mL/min (>60); Estimated Creatinine Clearance 37.64 ml/min; Glucose 151 mg/dL (74-106); Potassium 4.4 mmol/L (3.5-5.1); Sodium Level 134 mmol/L (136-145)
[2019-05-14 16:49] LABS: Color, Urine Yellow (Yellow); Glucose, Dipstick Normal (Normal); Ketone-Dipstick 5 mg/dl (Negative); Leukocyte Esterase-Dipstick 25 /ul (Negative); Nitrite-Dipstick Negative (Negative); Occult Blood-Urine 50 /ul (Negative); Protein-Dipstick Negative (Negative); Specific Gravity, Urine 1.015 (1.002-1.030); Urine Bilirubin Dipstick Negative (Negative); Urine Clarity Clear (Clear); Urine Urobilinogen Normal (Normal)
[2019-05-14 17:12] LABS: Red Blood Cells-Urine 0-5 SEEN /hpf (0-5); Squamous Epithelial Cells - UA 0-5 SEEN /hpf (5-10); White Blood Cells 0-5 SEEN /hpf (0-5)
[2019-05-14 17:26] LABS: Differential Comment SCANNED; Platelet Estimate ADEQUATE (ADEQ)
[2019-05-14 17:27] LABS: Anisocytosis 3+; Polychromasia RARE; Tear Drop Cell RARE
--- NOTE | 2019-05-14 18:07 | CT_ITS ---
STUDY: CT ABDOMEN AND PELVIS WITH CONTRAST REASON FOR EXAM: Female, 63 years old. Pain. RADIATION DOSAGE (If Supplied By Facility): CTDIvol = ( 7.55 ) mGy, DLP = ( 343.34 ) mGycm TECHNIQUE: Transaxial images were obtained from the dome of the diaphragm to the symphysis pubis with oral contrast. 100ML IV/Oral Isovue 300 was administered. Sagittal and coronal images were reconstructed. Individualized dose optimization techniques were used for this CT. COMPARISON: Noncontrast enhanced exam earlier the same day FINDINGS: Fibrotic densities and lower lung atelectasis. The visualized portions of the heart are within normal limits. There is 0.8 cm hypodensity at the anterior liver. Normal gallbladder and extrahepatic biliary system. Normal spleen. Normal pancreas. There is 1.7 cm left adrenal nodule. There is 1.6 cm cyst of the right kidney. There is 1.2 cm cyst of the left kidney. Normal visualized stomach. Normal small intestine. There is postoperative change at the sigmoid colon. There is non-visualization of the appendix. There is diffuse atherosclerotic calcification of the abdominal aorta, without a demonstrated aneurysm. Normal inferior vena cava. Normal retroperitoneum. Normal urinary bladder. There is atrophy of the uterus. There is no free fluid in the abdomen or pelvis. Normal abdominal wall. There are degenerative changes of the visualized lumbar spine. CT/Abdomen/Pelvis WITH Contrast IMPRESSION: No obstruction. Postoperative changes. Renal cysts. Electronically Signed: Panfilo Rudolph MD at 21:14 EDT , Service support ,
--- NOTE | 2019-05-14 18:11 | NURSING ---
MED SURG OBS PARTIAL SBO [facility]INE
--- NOTE | 2019-05-14 18:27 | HP.PCM_ITS ---
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 The patient is a 63 year old F with past medical history as mentioned above presented to the emergency room because of right flank pain. His symptoms started this morning with right flank/right gluteal pain, dull aching pain, 8 out of 10 in severity, not radiating, associated with nausea, intermittent and without aggravating or relieving factors. She denies constipation or diarrhea. She denies fever chills. She mentioned that later on the day, she started having vague right-sided abdominal pain. She had bowel movement today and she has been passing flatus. She had a history of colon resection for familial polyposis long time ago. In the emergency department, she was slightly tachycardic, other vital signs were stable. Routine blood work was remarkable for hemoglobin of 9.7 g/dL, creatinine of 1.21. Urinalysis showed no evidence of acute infection. CT scan abdomen and pelvis without contrast revealed mild fluid distention of small bowel suggestive of ileus or partial small bowel obstruction. She is being admitted for probable partial small bowel obstruction. Past Medical History Past Medical History (Chronic Problems): Chronic Problems Superficial thrombophlebitis of right upper extremity (Chronic) COPD (chronic obstructive pulmonary disease) (Chronic) Hyperlipidemia (Chronic) Hypertension (Chronic) Non-small cell lung cancer (Chronic) Allergies codeine Adverse Reaction (Verified 04/28/19 13:15) Nausea verapamil Adverse Reaction (Verified 04/28/19 13:15) Nausea/Vom/Diarrhea Home Medications: Ambulatory Orders Medication Instructions Recorded Diltiazem HCl [Diltiazem 24Hr ER 240 mg PO DAILY 06/26/15 ([place])] Albuterol Inhaler [Ventolin Hfa] 2 puff INHALATION Q6H PRN PRN 08/20/16 Ondansetron [Ondansetron Odt] 8 mg PO Q8H PRN PRN 04/28/19 Rivaroxaban [Xarelto] 20 mg PO DAILY 04/28/19 Guaifenesin [Robitussin] 20 ml PO Q4H PRN PRN udc 04/29/19 Surgical History: colectomy, - - Right lung lobectomy. 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 Lives: Spouse/ Significant Other Smoking Status: Former smoker Alcohol: None Drugs: None - *Family History Maternal History Items: No pertinent history Paternal History Items: No pertinent history Review of Systems Constitutional: Denies: Anorexia, Chills, Fever, Weakness Eyes: Denies: Blurred vision, Double vision, Drainage, Redness HEENT: Denies: Difficulty Hearing, Ear Pain, Eye Pain, Nasal Congestion, Sore Throat Cardiovascular: Denies: Chest Pain, Chest Pressure, Heaviness, Palpitations, Syncope Respiratory: Denies: Cough, Pleuritic Pain, Shortness of Breath, Sputum production, Wheezing Gastrointestinal: Reports: Abdominal Pain, Nausea. Denies: Constipation, Diarrhea, Hematochezia, Melena, Vomiting Genitourinary: Denies: Dysuria, Frequency, Hematuria Musculoskeletal: Denies: Arm Pain, Back Pain, Foot Pain Skin: Denies: Dryness, Rash Neurological: Denies: Balance problems, Double vision, Change in Speech, Slurred speech, Confusion, Headaches, Incoordination, Numbness Psychiatric: Denies: Anxiety, Depression Endocrine: Denies: Change in Body Habitus, Polydipsia, Polyuria VTE Information - Inpt Only VTE Present on Admission: No VTE Mechan Device Prophylaxis: SCD's VTE Pharm Prophylaxis ordered?: No - Physical Exam General: Alert, Oriented x3, Cooperative, No apparent distress HEENT: Atraumatic, PERRLA, EOMI, Normocephalic Oral: Moist Mucosa, No Gingival or Mucosal Lesions/ Ulcerations Neck: Supple, No JVD, Negative Carotid Bruits, Trachea Midline, Thyroid Normal Size and Texture Lungs: Clear to auscultation, Normal air movement, No rhonchi, No wheeze, No rales, Diminished Cardiovascular: Regular rate, Regular Rhythm, Normal S1, Normal S2, PMI Normal, Tachycardic Abdomen: Bowel Sounds Present, Soft, Non Tender, Non-Distended, No Hepato- splenomegaly Extremities: No clubbing, No cyanosis, No edema Skin: No rashes, No breakdown Lymphatic: No Cervical, Supraclavicular, or Inguinal Adenopathy Neurological: Cranial nerves II-XII grossly intact, Motor Exam 5/5 strength throughout Psych/Mental Status: Normal Affect, Appropriate, Alert and oriented to time, place, person, mood and affect Vital Signs Temp Pulse Resp BP Pulse Ox 98.9 F 105 H 16 125/88 H 95 05/14/19 15:38 05/14/19 15:38 05/14/19 15:38 05/14/19 15:38 05/14/19 15:38 Weight: 130 lb Body Mass Index (BMI) 23.8 Laboratory Tests Past 24 Hrs 05/14/19 05/14/19 05/14/19 16:20 16:20 16:40 WBC 10.7 RBC 3.20 L Hgb 9.7 L Hct 29.9 L MCV 93.4 MCH 30.3 MCHC 32.4 RDW Std Deviation 65.5 H RDW Coeff of Felipe 19.4 H Plt Count 302 MPV 9.6 Immature Gran % (Auto) 1.000 H Neut % (Auto) 71.7 H Lymph % (Auto) 15.6 L [place] % (Auto) 11.0 H Eos % (Auto) 0.1 Baso % (Auto) 0.6 Absolute Neuts (auto) 7.7 Absolute Lymphs (auto) 1.67 Nucleated RBC % 0 Differential Comment SCANNED Platelet Estimate ADEQUATE Polychromasia RARE Anisocytosis 3+ Tear Drop Cells RARE Sodium 134 L Potassium 4.4 Chloride 103 Carbon Dioxide 23.0 Anion Gap 8 BUN 8 Creatinine 1.21 H Estim Creat Clear Calc 37.64 Est GFR (MDRD) Af Amer 58 L Est GFR (MDRD) Non-Af 48 L BUN/Creatinine Ratio 6.6 L Glucose 151 H Calcium 8.4 L Urine Color Yellow Urine Clarity Clear Urine pH 6.0 Ur Specific [place] 1.015 Urine Protein Negative Urine Glucose (UA) Normal Urine Ketones 5 H Urine Occult Blood 50 H Urine Nitrite Negative Urine Bilirubin Negative Urine Urobilinogen Normal Ur Leukocyte Esterase 25 H Urine RBC 0-5 SEEN Urine WBC 0-5 SEEN Ur Squamous Epith Cells 0-5 SEEN Urine Bacteria 0 SEEN Urine Mucus 0 SEEN Clinical Impression(s) from Imaging Studies Abdomen/Pelvis CT 05/14/19 15:48 IMPRESSION: No stones or hydronephrosis. Postoperative changes of the colon. Mild fluid distention of small bowel suggesting ileus or partial obstruction. Fibrotic densities of the lower lungs. Left adrenal nodule. Electronically Signed: Panfilo Rudolph MD at 17:22 EDT , Service support , Assessment/Plan This is a 63 years old female patient presented to the emergency room because of right flank/right gluteal pain as well as vague right-sided abdominal pain with nausea and she was found to have findings consistent with suspected partial small bowel obstruction. #1 suspected partial small bowel obstruction: Versus ileus. Patient with a history of colon resection for familial polyposis long time ago. CT scan abdomen and pelvis reviewed. General surgery consulted by ED physician and recommended CT scan abdomen and pelvis with both IV and oral contrast which is pending at this time. [facility], keep on n.p.o., IV fluids, IV morphine PRN, IV antiemetics, repeat CBC and BMP tomorrow morning, general surgery consult, awaiting repeat CT scan abdomen and pelvis with IV and oral contrast to be done, PT OT evaluation and treatment. #2 anemia: It is normocytic anemia, fairly acute. Patient has been in chemotherapy which can explain this anemia. Patient denied any bleeding from body orifices but she has been on Xarelto. Plan: Check serum iron, TIBC, serum ferritin, stool for occult blood. #3 renal insufficiency: Patient was admitted recently for VINAYAK, admission creatinine at that time was 1.91, came down to 1.6 upon discharge. Admission creatinine is 1.21, stable. Plan for IV fluids, repeat BMP tomorrow morning. #4 non-small cell lung cancer: Status post right lobectomy, completed 8 cycles of chemotherapy. Stable at this time. #5 COPD: Clinically stable, pulse ox is maintained on room air. Plan for albuterol as needed. #5 recent history of superficial thrombophlebitis: Has been on Xarelto. Xarelto will be held, will check pro time and INR. #7 hypertension: Blood pressure stable, continue Cardizem. #8 DVT prophylaxis: SCDs. This note was generated with Wavecraft[employer] software. It may contain incorrect words, spelling, and punctuation that were not noted in checking the note before signing. Code Visit Inpatient E&M: 89141 Init Hosp L2
--- NOTE | 2019-05-14 18:28 | CASEMGMT ---
RN CM Assessment Introduced role of RN CM to patient.? Patient is alert, oriented and able?to participate in RN CM Assessment. ?Care providers, pharmacy, and demographics verified. Presentation: Right Flank pain associated with nausea. H/o Non-small cell lung CA and treated with Chemo. Last Chemo on 04/17/19. Admit Dx: Suspected partial SBO Re-Admit: No, OBS 04/28-04/29/19 for VINAYAK, COPD exacerbation. Barriers/Issues: None. [facility] supposed to have a CT to check lungs on Sunday or Sunday and have Bronchoscope with [facility] but thinks it is only a office visit and needs to call them. This field underwriter discussed if on Palliative Care of if anyone has discussed with her about it before. Educated patient on Palliative care and patient aware if she continues to have issues or thinks she would be interested to let staff know and a Drive In Teller will talk with her about it in more detail. PCP: Fausto Butt Specialists: Onc- Dr Arriaza, Cardiothoracic- Dr Eller, Pulm-[facility]. [facility] receives all her cancer care at [facility] Preferred Pharmacy: [facility] Insurance: [employer] Benefit: Yes? LNOK: Dtr Samantha Kiser LW/HPOA: Yes both, HPOA- Dtr Samantha Kiser Living Arrangements:?Lives in the front apartment with Dtr, a few steps to enter home. ADL?s: Independent with ambulation and ADLs Transportation: Patient drives but does not have a car anymore so Dtr has been transporting and will upon DC DME: [employer] HHC: None SNF: None Goal: Home, does not think will have any needs. Denies any issues, concerns, or questions with DC planning at this time. Aware CM remains available for any emerging needs. DC PLAN: Home with no anticipated needs identified at this time. BERNICE Arguello
[2019-05-14 18:43] VITALS: BMI 23.8
--- NOTE | 2019-05-14 19:20 | CON.PCM_ITS ---
Problem List (1) Flank pain Status: Acute Reason for Consult Date of Consultation: 05/14/19 History of Present Illness: The patient is a 63 year old F who I am being asked to see for possible small bowel obstruction by Dr. Goldsmith and a written copy of my surgical consult recommendations will be present on the chart.. The patient presented to the emergency room with a complaint of right lower flank pain. Her history that she provides is that she has been treated at the [facility] with a right upper lobe lung resection for lung cancer followed by chemotherapy. She states about 2 weeks ago as a consequence of chemotherapy she was admitted overnight to the [facility] she said with some bronchitis and acute kidney injury and anemia. On this occasion she had developed acute onset of right lower flank pain. She contacted her primary care physician office to Dr. Butt in was referred to the emergency room. She has had some nausea with her chemotherapy but only 2 episodes of vomiting and nothing recently. She has had some intermittent sharp left groin pain. She has not really had any abdominal distention. No recent vomiting. She states that I have assisted her with some medical care in the past. It is of note that she has had a subtotal colectomy with what sounds like a ileorectal anastomosis secondary to familial polyposis. She denies any history of previous colon cancer. Through the emergency room a noncontrasted CT scan was obtained because of the flank pain looking for kidney stones. No stones or hydronephrosis. There was felt to be postoperative changes of the colon with mild fluid distention of small bowel suggesting ileus or partial obstruction. Fibrotic densities in the lower lungs and left adrenal nodule. I do not believe that the radiologist is aware that the patient has had a near total colectomy. I have personally reviewed her CT scan. I suspect that this is more likely a nonsurgical nonoperative process related to her chemotherapy and possible slight ileus. I am not seeing findings that would correlate with a significant small bowel obstruction. Past Medical History Past Medical History (Chronic Problems): Chronic Problems Superficial thrombophlebitis of right upper extremity (Chronic) COPD (chronic obstructive pulmonary disease) (Chronic) Hyperlipidemia (Chronic) Hypertension (Chronic) Non-small cell lung cancer (Chronic) Allergies codeine Adverse Reaction (Verified 04/28/19 13:15) Nausea verapamil Adverse Reaction (Verified 04/28/19 13:15) Nausea/Vom/Diarrhea Home Medications: Ambulatory Orders Medication Instructions Recorded Diltiazem HCl [Diltiazem 24Hr ER 240 mg PO DAILY 06/26/15 ([place])] Albuterol Inhaler [Ventolin Hfa] 2 puff INHALATION Q6H PRN PRN 08/20/16 Ondansetron [Ondansetron Odt] 8 mg PO Q8H PRN PRN 04/28/19 Rivaroxaban [Xarelto] 20 mg PO DAILY 04/28/19 Guaifenesin [Robitussin] 20 ml PO Q4H PRN PRN udc 04/29/19 Surgical History: colectomy, - - Right lung lobectomy. 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 Denies: Abdominal Pain, Vomiting Endocrine: Denies: Change in Body Habitus Patient Problems: Active and Suspected Problems Flank pain (Acute) - Physical Exam General: Alert, Oriented x3, Cooperative, No apparent distress HEENT: Atraumatic Oral: Moist Mucosa Neck: Supple Lungs: - - Increased anterior posterior diameter with some minimal scattered bilateral rales, breath sounds are noted to the right apex Cardiovascular: Regular rate, Regular Rhythm Abdomen: Bowel Sounds Present, Soft, Non Tender, Non-Distended, - - Normal bowel sounds, no tinkles or rushes, no inguinal tenderness or inguinal hernias, well- healed midline incision with no palpable fascial defect or hernia Extremities: No Calf Tenderness Psych/Mental Status: Normal Affect, Appropriate Vital Signs Temp Pulse Resp BP Pulse Ox 98.9 F 105 H 16 125/88 H 95 05/14/19 15:38 05/14/19 15:38 05/14/19 15:38 05/14/19 15:38 05/14/19 15:38 Weight: 130 lb Body Mass Index (BMI) 23.8 Intake and Output for Last 24 Hours 05/12/19 05/13/19 05/14/19 23:59 23:59 23:59 Intake Total 1000 / 1000 Balance 1000 / 1000 Laboratory Tests Past 24 Hrs 05/14/19 05/14/19 05/14/19 16:20 16:20 16:40 WBC 10.7 RBC 3.20 L Hgb 9.7 L Hct 29.9 L MCV 93.4 MCH 30.3 MCHC 32.4 RDW Std Deviation 65.5 H RDW Coeff of Felipe 19.4 H Plt Count 302 MPV 9.6 Immature Gran % (Auto) 1.000 H Neut % (Auto) 71.7 H Lymph % (Auto) 15.6 L [place] % (Auto) 11.0 H Eos % (Auto) 0.1 Baso % (Auto) 0.6 Absolute Neuts (auto) 7.7 Absolute Lymphs (auto) 1.67 Nucleated RBC % 0 Differential Comment SCANNED Platelet Estimate ADEQUATE Polychromasia RARE Anisocytosis 3+ Tear Drop Cells RARE Sodium 134 L Potassium 4.4 Chloride 103 Carbon Dioxide 23.0 Anion Gap 8 BUN 8 Creatinine 1.21 H Estim Creat Clear Calc 37.64 Est GFR (MDRD) Af Amer 58 L Est GFR (MDRD) Non-Af 48 L BUN/Creatinine Ratio 6.6 L Glucose 151 H Calcium 8.4 L Urine Color Yellow Urine Clarity Clear Urine pH 6.0 Ur Specific [place] 1.015 Urine Protein Negative Urine Glucose (UA) Normal Urine Ketones 5 H Urine Occult Blood 50 H Urine Nitrite Negative Urine Bilirubin Negative Urine Urobilinogen Normal Ur Leukocyte Esterase 25 H Urine RBC 0-5 SEEN Urine WBC 0-5 SEEN Ur Squamous Epith Cells 0-5 SEEN Urine Bacteria 0 SEEN Urine Mucus 0 SEEN Assessment/Plan All Active Problems Flank pain (Acute) 63-year-old female who appears to be resting very comfortably in the stretcher in no acute distress pointing to her right very low flank almost hip area. She does not really have any specific abdominal complaints. I have personally reviewed her CT scan and with the history of the subtotal colectomy and I am suspicious that this at most might be a mild ileus perhaps related to her chemotherapy. I have a much lower suspicion for clinically significant small bowel obstruction. I have recommended a oral contrasted CT scan. Pending these results I can further assist as needed. I appreciate the opportunity of assisting with his surgical care Carlo Hendrickson M.D., F.A.C.S.
[2019-05-14 20:35] VITALS: BMI 24.7
[2019-05-14 20:38] VITALS: BP 141/82; PULSE 82; RESP 18; TEMP 36.9; O2SAT 99
[2019-05-14] MEDS: 0.9% Normal Saline 1,000 ML 125 ML IV (20:52)
[2019-05-14] MEDS: 0.9% NaCl Peripheral Flush Adult/Peds IV (20:52)
[2019-05-14 20:56] LABS: International Normalized Ratio 1.5; Prothrombin Time (Protime)PT. 17.8 SECONDS (11.7-14.9)
[2019-05-14 21:01] LABS: Ferritin 201 ng/mL (8-252); Iron 34 ug/dL (50-170); Iron Binding Capacity,Total 355 ug/dL (250-450); PERCENT IRON SATURATION 9.6 % (15.0-55.0)
[2019-05-14] MEDS: Morphine 2 MG/ML Syringe IV (22:41)
[2019-05-14] MEDS: Morphine 4 MG/ML Syringe IV (22:44)
[2019-05-14 23:27] VITALS: O2SAT 96
[2019-05-15 02:30] VITALS: BP 108/60; PULSE 90; RESP 16; TEMP 37.2; O2SAT 95
[2019-05-15] MEDS: Morphine 2 MG/ML Syringe IV ×2 (03:29→08:54)
[2019-05-15] MEDS: 0.9% Normal Saline 1,000 ML 125 ML IV (03:32)
[2019-05-15 05:30] LABS: Absolute Lymphocyte Count 1.96 X10^3/uL (0.83-4.51); Absolute Neutrophil Count 4.6 X10^3/uL (2.0-7.7); Basophil# 0.07 X10^3/uL; Basophil% 0.9 % (0-1); Eosinophil# 0.02 X10^3/uL; Eosinophils% 0.2 % (0-5); Hematocrit 28.3 % (37-47); Hemoglobin 8.7 g/dL (12.0-15.0); Lymphocyte # 1.96 X10^3/ul (4.0); Lymphocyte % 24.2 % (19-41); Mean Corp Hgb Conc 30.7 g/dL (32-36); Mean Corpuscular Hgb 29.7 pg (27.0-32.0); Mean Corpuscular Volume 96.6 fL (81-99); Mean Platelet Vol. 9.4 fl (6.2-12.0); Monocyte# 1.37 X10^3/uL; Monocyte% 16.9 % (0-10); NRBC Flagged by Analyzer 0 % (0-5); Neutrophil # 4.56 X10^3/uL (2.7-7.7); Neutrophil % 56.4 % (47-70); POSITIVE MORPHOLOGY YES; Platelet Count 253 K/mm3 (150-450); RBC Distribution Width CV 19.4 % (11.6-14.6); RBC Distribution Width SD 67.8 fl (35.1-43.9); Red Blood Count 2.93 M/mm3 (4.2-5.4); White Blood Count 8.1 K/mm3 (4.4-11.0)
--- NOTE | 2019-05-15 05:37 | PCM.PN.BLA ---
<Carlo Hendrickson - Last Filed: 05/15/19 05:37> Progress Note CT with contrast no obstruction Pt has had RUL pulmonary resection and chemo both c/w anemia Can follow up as outpt as needed, thanks. Patricia <Jacqui Gross - Last Filed: 05/15/19 11:27> Progress Note Discussed with Dr. Hendrickson in regards to decrease in hemoglobin. Patient's last Hgb was 9.7 on 05/09 and starting on 04/17/19 through 2007 patient's hemoglobin was normal. Patient's last upper and lower scope was on 10/16/18 demonstrating irregular z-line, normal ampulla, first and second portion of the duodenum biopsies. Ther was also 12 1-2 mm body and fundus polyps. Colonoscopy demonstrated hemorrhoids, eight less than 1 mm polyps in the rectum. Pathology demonstrated focal mild active duodenitis, negative for epithelial dysplasia and fragments of tubular adenoma. Will plan to place patient on a PPI. At this time, not sure patient will need an EGD at this time.
[2019-05-15 05:42] LABS: Differential Indicated SCAN CRITERIA MET
[2019-05-15 05:50] LABS: Anion Gap 6 (5-15); BUN 7 mg/dL (7-18); BUN/Creat Ratio 8.6 RATIO (10-20); Calcium,Total 7.6 mg/dL (8.5-10.1); Chloride 109 mmol/L (98-107); Creatinine, Serum 0.81 mg/dL (0.55-1.02); EST Glomerular Filtration Rate 75 mL/min (>60); Est Glom Filt Rate - Afr Amer 91 mL/min (>60); Estimated Creatinine Clearance 56.23 ml/min; Glucose 101 mg/dL (74-106); Potassium 4.1 mmol/L (3.5-5.1); Sodium Level 138 mmol/L (136-145)
[2019-05-15 06:21] LABS: Anisocytosis 1+; Differential Comment SCANNED; Hypochromasia 1+; Microcytosis 1+; Polychromasia 1+
[2019-05-15 06:45] VITALS: O2SAT 96
[2019-05-15] MEDS: Acetaminophen 325 MG Tablet 650 MG PO (08:54)
[2019-05-15 08:55] VITALS: BP 106/55; PULSE 83; RESP 18; TEMP 36.7; O2SAT 97
--- NOTE | 2019-05-15 09:15 | PN_ITS ---
Patient Problems: Active and Suspected Problems Flank pain (Acute) Vitals/I&O's: Vital Signs Temp Pulse Resp BP Pulse Ox 98.9 F 90 16 108/60 96 05/15/19 02:30 05/15/19 02:30 05/15/19 02:30 05/15/19 02:30 05/15/19 06:45 Oxygen Delivery Method Room Air Weight: 135 lb 9.349 oz Body Mass Index (BMI) 24.7 Intake and Output for Last 24 Hours 05/13/19 05/14/19 05/15/19 23:59 23:59 23:59 Intake Total 1000 / 1060 893.33 / 893.33 Balance 1000 / 1060 893.33 / 893.33 Laboratory Results 05/14/19 16:20: WBC 10.7, RBC 3.20 L, Hgb 9.7 L, Hct 29.9 L, MCV 93.4, MCH 30.3, MCHC 32.4, RDW Std Deviation 65.5 H, RDW Coeff of Felipe 19.4 H, Plt Count 302, MPV 9.6, Immature Gran % (Auto) 1.000 H, Neut % (Auto) 71.7 H, Lymph % (Auto) 15.6 L , [place] % (Auto) 11.0 H, Eos % (Auto) 0.1, Baso % (Auto) 0.6, Absolute Neuts (auto) 7.7, Absolute Lymphs (auto) 1.67, Nucleated RBC % 0, Differential Comment SCANNED, Platelet Estimate ADEQUATE, Polychromasia RARE, Anisocytosis 3+, Tear Drop Cells RARE 05/14/19 16:20: Sodium 134 L, Potassium 4.4, Chloride 103, Carbon Dioxide 23.0, Anion Gap 8, BUN 8, Creatinine 1.21 H, Estim Creat Clear Calc 37.64, Est GFR (MDRD) Af Amer 58 L, Est GFR (MDRD) Non-Af 48 L, BUN/Creatinine Ratio 6.6 L, Glucose 151 H, Calcium 8.4 L 05/14/19 16:20: Iron 34 L, TIBC 355, Iron Saturation 9.6 L, Ferritin 201 05/14/19 16:20: PT 17.8 H, INR 1.5 05/14/19 16:40: Urine Color Yellow, Urine Clarity Clear, Urine pH 6.0, Ur Specific [place] 1.015, Urine Protein Negative, Urine Glucose (UA) Normal, Urine Ketones 5 H, Urine Occult Blood 50 H, Urine Nitrite Negative, Urine Bilirubin Negative, Urine Urobilinogen Normal, Ur Leukocyte Esterase 25 H, Urine RBC 0-5 SEEN, Urine WBC 0-5 SEEN, Ur Squamous Epith Cells 0-5 SEEN, Urine Bacteria 0 SE EN, Urine Mucus 0 SEEN 05/15/19 05:10: WBC 8.1, RBC 2.93 L, Hgb 8.7 L, Hct 28.3 L, MCV 96.6, MCH 29.7, MCHC 30.7 L, RDW Std Deviation 67.8 H, RDW Coeff of Felipe 19.4 H, Plt Count 253, MPV 9.4, Immature Gran % (Auto) 1.400 H, Neut % (Auto) 56.4, Lymph % (Auto) 24.2, [place] % (Auto) 16.9 H, Eos % (Auto) 0.2, Baso % (Auto) 0.9, Absolute Neuts (auto) 4.6, Absolute Lymphs (auto) 1.96, Nucleated RBC % 0, Differential Comment SCANNED, Polychromasia 1+, Hypochromasia 1+, Anisocytosis 1+, Microcytosis 1+ 05/15/19 05:10: Sodium 138, Potassium 4.1, Chloride 109 H, Carbon Dioxide 23.0, Anion Gap 6, BUN 7, Creatinine 0.81, Estim Creat Clear Calc 56.23, Est GFR (MDRD) Af Amer 91, Est GFR (MDRD) Non-Af 75, BUN/Creatinine Ratio 8.6 L, Glucose 101, Calcium 7.6 L Current Medications Acetaminophen (Tylenol) 650 mg PO Q6H PRN PRN PRN Reason: Mild Pain (1-3)/Temp > 100.7 F Last Admin: 05/15/19 08:54 Dose: 650 mg Documented by: Albuterol Sulfate (Ventolin Aerosols) 2.5 mg INHALATION Q4H PRN PRN PRN Reason: Shortness of breath, wheezing Diltiazem HCl (Cardizem Cd) 240 mg PO DAILY [facility] Sodium Chloride () 1,000 mls @ 125 mls/hr IV .Q8H JEAN Last Admin: 05/15/19 03:32 Dose: 125 mls/hr Documented by: Morphine Sulfate () 1 - 2 mg IV Q4H PRN PRN PRN Reason: Severe pain (-06/12) Last Admin: 05/15/19 08:54 Dose: 2 mg Documented by: Ondansetron HCl (Zofran) 4 mg IV Q8H PRN PRN PRN Reason: NAUSEA/VOMITING Sodium Chloride () 10 - 40 ml IV UD PRN PRN Reason: SALINE FLUSH Last Admin: 05/14/19 20:52 Dose: 10 ml Documented by: Medical Necessity - Tobacco Use Smoking Status: Former smoker Tobacco Use: Cigarettes Assessment/Plan All Active Problems Flank pain (Acute)
--- NOTE | 2019-05-15 11:55 | DCINST_ITS ---
- Discharge Diagnoses Current Active Problems: Current Active and Chronic Problems Flank pain (Acute) You will use the following diet at home:: Cardiac Your food should be the consistency of: Regular Your liquids should be the consistency of: Regular/Thin Discharge Activity: Return to Normal Activity Weight Bearing Status: Weight bearing as tolerated Call your doctor if you observe: Dizziness, Fainting spells, Increased palpitations (irregular heartbeat) Instructions: Abdominal Pain Allergies/Adverse Reactions: Allergies codeine Adverse Reaction (Verified 04/28/19 13:15) Nausea verapamil Adverse Reaction (Verified 04/28/19 13:15) Nausea/Vom/Diarrhea Medications to take at Discharge Diltiazem HCl [Diltiazem 24Hr ER ([place])] 240 mg PO DAILY 06/26/15 Albuterol Inhaler [Ventolin Hfa] 2 puff INHALATION Q6H PRN PRN 08/20/16 Ondansetron [Ondansetron Odt] 8 mg PO Q8H PRN PRN 04/28/19 Guaifenesin [Robitussin] 20 ml PO Q4H PRN PRN udc 04/29/19 Primary Care Physician: Fausto Butt MD [Primary Care Provider] - Please follow up with your Primary Care Physician in: one week Test Results: Test results from this visit will be discussed in further detail at your follow- up appointment, if applicable. When: follow up with your oncologist within one week Proposed Discharge Date: 05/15/19
--- NOTE | 2019-05-15 11:58 | DS.PCM_ITS ---
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 Postoperative changes. Renal cysts. Electronically Signed: Panfilo Rudolph MD at 21:14 EDT , Service support , general surgery- Dr Alfred Hendrickson Operations: None Procedures: None Summary of Care Provided: The patient is a 63 year old F with a PMH as listed. She was admitted through the ED on 05/14/19 with a complaint of right flank pain which started morning of admission, non radiating and associated with nausea. There were no aggravating or relieving factors. She had a history of colon resection for familial polyposis years prior. In the ED, labs shwoed Hb of 9.7g/dl, with Cr of 1.21. Urinalysis was negative and CT of the abdomen and pelvis without contrast revealed mild fluid distention of small bowel suggestive of IVS or partial small bowel obstruction. She was therefore admitted and managed for probable partial small bowel obstruction. General surgery was consulted but they did not really think there was evidence of bowel obstruction as patient is having bowel movements and passing gas and had no vomiting. General surgery thought that this was likely a nonsurgical nonoperative process related to her chemotherapy and possible slight ileus. Patient had had chemotherapy for lung cancer couple of weeks prior to admission. She was admitted, hydrated with IV fluids and kept n.p.o. Pain resolved and patient continued passing gas and having bowel movements. Hemoglobin was noted to drop to 8.7 from 9.7 on admission. Iron panel done showed iron of 34 with iron saturation of 9.6 and TIBC of 355 as well as ferritin of 201. Stool occult blood was positive. This was discussed with general surgery who felt that in light of her colectomy for familial polyposis, there was no need to do an emergent EGD or colonoscopy. Discussion was also had with hematology-Dr. Fernández who thought that this was likely an anemia of chronic disease in the setting of patient's cancer and normal ferritin levels. Patient had been on Xarelto for superficial thrombophlebitis for a few months and this was discontinued. She remained stable and tolerated oral diet. She was discharged home on 05/15/2019. 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 Patient seen and examined prior to discharge. She had no complaints and felt well. Review of systems was otherwise negative. Labs and vitals reviewed. Home medications reviewed and reconciled. o/e: Vital Signs Height 5 ft 2 in Weight: 135 lb 9.349 oz Weight in Pounds 135.6 lbs Pulse Ox 96 Temperature 98.2 F Pulse Rate 78 Respiratory Rate 18 Blood Pressure 118/81 Blood Pressure Position Semi-Fowlers - Physical Exam General: Alert, Oriented x3, Cooperative HEENT: Atraumatic, PERRLA, EOMI, Normocephalic Oral: Moist Mucosa Neck: Supple, No JVD, Negative Carotid Bruits Lungs: Clear to auscultation, Normal air movement, No rhonchi, No wheeze, No rales Cardiovascular: Regular rate, Regular Rhythm, Normal S1, Normal S2, No murmurs Abdomen: Bowel Sounds Present, Soft, Non Tender, Non-Distended, No Hepato- splenomegaly Extremities: No clubbing, No cyanosis, No edema, Capillary Refill Less than 3 Seconds Skin: No rashes, No breakdown Musculoskeletal: No Tenderness to Palpation of Joints or Extremities Lymphatic: No Cervical, Supraclavicular, or Inguinal Adenopathy Neurological: Cranial nerves II-XII grossly intact, Neuro grossly intact, Motor Exam 5/5 strength throughout Psych/Mental Status: Normal Affect, Appropriate, Alert and oriented to time, place, person, mood and affect Vital Signs Temp Pulse Resp BP Pulse Ox 98.0 F 83 18 106/55 L 97 05/15/19 08:55 05/15/19 08:55 05/15/19 08:55 05/15/19 08:55 05/15/19 08:55 Oxygen Delivery Method Room Air Weight: 135 lb 9.349 oz Body Mass Index (BMI) 24.7 Intake and Output for Last 24 Hours 05/13/19 05/14/19 05/15/19 23:59 23:59 23:59 Intake Total 1000 / 1060 1847.50 / 1847.50 Balance 1000 / 1060 1847.50 / 1847.50 Microbiology Past 72 Hours 05/15/19 08:50 Stool Occult Blood (ELI) - Final Stool Occult Blood Positive Laboratory Tests Past 24 Hrs 05/14/19 05/14/19 05/14/19 16:20 16:20 16:20 WBC 10.7 RBC 3.20 L Hgb 9.7 L Hct 29.9 L MCV 93.4 MCH 30.3 MCHC 32.4 RDW Std Deviation 65.5 H RDW Coeff of Felipe 19.4 H Plt Count 302 MPV 9.6 Immature Gran % (Auto) 1.000 H Neut % (Auto) 71.7 H Lymph % (Auto) 15.6 L [place] % (Auto) 11.0 H Eos % (Auto) 0.1 Baso % (Auto) 0.6 Absolute Neuts (auto) 7.7 Absolute Lymphs (auto) 1.67 Nucleated RBC % 0 Differential Comment SCANNED Platelet Estimate ADEQUATE Polychromasia RARE Hypochromasia Anisocytosis 3+ Microcytosis Tear Drop Cells RARE PT INR Sodium 134 L Potassium 4.4 Chloride 103 Carbon Dioxide 23.0 Anion Gap 8 BUN 8 Creatinine 1.21 H Estim Creat Clear Calc 37.64 Est GFR (MDRD) Af Amer 58 L Est GFR (MDRD) Non-Af 48 L BUN/Creatinine Ratio 6.6 L Glucose 151 H Calcium 8.4 L Iron 34 L TIBC 355 Iron Saturation 9.6 L Ferritin 201 Urine Color Urine Clarity Urine pH Ur Specific [place] Urine Protein Urine Glucose (UA) Urine Ketones Urine Occult Blood Urine Nitrite Urine Bilirubin Urine Urobilinogen Ur Leukocyte Esterase Urine RBC Urine WBC Ur Squamous Epith Cells Urine Bacteria Urine Mucus 05/14/19 05/14/19 05/15/19 16:20 16:40 05:10 WBC 8.1 RBC 2.93 L Hgb 8.7 L Hct 28.3 L MCV 96.6 MCH 29.7 MCHC 30.7 L RDW Std Deviation 67.8 H RDW Coeff of Felipe 19.4 H Plt Count 253 MPV 9.4 Immature Gran % (Auto) 1.400 H Neut % (Auto) 56.4 Lymph % (Auto) 24.2 [place] % (Auto) 16.9 H Eos % (Auto) 0.2 Baso % (Auto) 0.9 Absolute Neuts (auto) 4.6 Absolute Lymphs (auto) 1.96 Nucleated RBC % 0 Differential Comment SCANNED Platelet Estimate Polychromasia 1+ Hypochromasia 1+ Anisocytosis 1+ Microcytosis 1+ Tear Drop Cells PT 17.8 H INR 1.5 Sodium Potassium Chloride Carbon Dioxide Anion Gap BUN Creatinine Estim Creat Clear Calc Est GFR (MDRD) Af Amer Est GFR (MDRD) Non-Af BUN/Creatinine Ratio Glucose Calcium Iron TIBC Iron Saturation Ferritin Urine Color Yellow Urine Clarity Clear Urine pH 6.0 Ur Specific [place] 1.015 Urine Protein Negative Urine Glucose (UA) Normal Urine Ketones 5 H Urine Occult Blood 50 H Urine Nitrite Negative Urine Bilirubin Negative Urine Urobilinogen Normal Ur Leukocyte Esterase 25 H Urine RBC 0-5 SEEN Urine WBC 0-5 SEEN Ur Squamous Epith Cells 0-5 SEEN Urine Bacteria 0 SEEN Urine Mucus 0 SEEN 05/15/19 05:10 WBC RBC Hgb Hct MCV MCH MCHC RDW Std Deviation RDW Coeff of Felipe Plt Count MPV Immature Gran % (Auto) Neut % (Auto) Lymph % (Auto) [place] % (Auto) Eos % (Auto) Baso % (Auto) Absolute Neuts (auto) Absolute Lymphs (auto) Nucleated RBC % Differential Comment Platelet Estimate Polychromasia Hypochromasia Anisocytosis Microcytosis Tear Drop Cells PT INR Sodium 138 Potassium 4.1 Chloride 109 H Carbon Dioxide 23.0 Anion Gap 6 BUN 7 Creatinine 0.81 Estim Creat Clear Calc 56.23 Est GFR (MDRD) Af Amer 91 Est GFR (MDRD) Non-Af 75 BUN/Creatinine Ratio 8.6 L Glucose 101 Calcium 7.6 L Iron TIBC Iron Saturation Ferritin Urine Color Urine Clarity Urine pH Ur Specific [place] Urine Protein Urine Glucose (UA) Urine Ketones Urine Occult Blood Urine Nitrite Urine Bilirubin Urine Urobilinogen Ur Leukocyte Esterase Urine RBC Urine WBC Ur Squamous Epith Cells Urine Bacteria Urine Mucus Diagnostic Data Abdomen/Pelvis CT 05/14/19 18:07 IMPRESSION: No obstruction. Postoperative changes. Renal cysts. Electronically Signed: Panfilo Rudolph MD at 21:14 EDT , Service support , Discharge Diet: No Restrictions Discharge Activity: Return to Normal Activity Weight Bearing Status: Weight bearing as tolerated Call your doctor if you observe: Dizziness, Fainting spells, Increased palpitations (irregular heartbeat), Uncontrolled pain Home Medications: Medications to take at Discharge Diltiazem HCl [Diltiazem 24Hr ER ([place])] 240 mg PO DAILY 06/26/15 Albuterol Inhaler [Ventolin Hfa] 2 puff INHALATION Q6H PRN PRN 08/20/16 Ondansetron [Ondansetron Odt] 8 mg PO Q8H PRN PRN 04/28/19 Guaifenesin [Robitussin] 20 ml PO Q4H PRN PRN udc 04/29/19 Primary Care Physician: Fausto Butt MD [Primary Care Provider] - Please follow up with your Primary Care Physician in: one week When: follow up with your oncologist within one week Patient Instructions: Abdominal Pain Disposition: Home Minutes spent on discharge:: 40 Patient Condition:: Stable Medical Necessity - Tobacco Use Smoking Status: Former smoker Tobacco Use: Cigarettes Meaningful Use Info Meaningful Use Diagnoses (Choose all that apply): None applicable Code Visit OBSV E&M: 09460 Observation care discharge
[2019-05-15 14:00] VITALS: BP 118/81; PULSE 78; RESP 18; TEMP 36.8; O2SAT 96
== END 2019-05-15 14:08 | disposition home or self-care (01) ==
LOC: ED 16:22 → MS3 05-15 07:14
PROVIDERS: Admitting Provider Hospitalist; Emergency Provider Emergency Medicine; Family Provider Family Medicine; PCP Family Medicine; Referring Provider Hospitalist; Visit Provider Student in an Organized Health Care Education/Training Program
DX: R10.9 Unspecified abdominal pain (principal); J44.9 Chronic obstructive pulmonary disease, unspecified; E78.5 Hyperlipidemia, unspecified; I10 Essential (primary) hypertension; D64.9 Anemia, unspecified; Z79.899 Other long term (current) drug therapy; Z79.01 Long term (current) use of anticoagulants; Z85.118 Personal history of other malignant neoplasm of bronchus and lung; Z92.21 Personal history of antineoplastic chemotherapy; Z87.891 Personal history of nicotine dependence; Z90.49 Acquired absence of other specified parts of digestive tract
CPT/HCPCS: 36415; 74176; 74177; 80048; 81001; 82274; 82728; 83540; 83550; 85025; 85610; 96361; 96374; 96375; 96376; 99218; 99285; J7030; Q9967; A4216; G0378; J2405

== ENCOUNTER 2019-06-08 06:50 | Emergency (ER) | payer MEDICAID, SELFPAY ==
[2019-06-08 06:50] VITALS: BMI 23.8
[2019-06-08 06:51] VITALS: BP 127/84; PULSE 97; RESP 20; TEMP 36.6; O2SAT 97; BMI 24.2
--- NOTE | 2019-06-08 07:07 | EKG12_ITS ---
Test Reason : PALPS Blood Pressure : / mmHG Vent. Rate : 089 BPM Atrial Rate : 089 BPM P-R Int : 136 ms QRS Dur : 072 ms QT Int : 354 ms P-R-T Axes : 237 031 046 degrees QTc Int : 430 ms Unusual P axis, possible ectopic atrial rhythm Abnormal ECG Confirmed by FABRICE MOMIN, CLARY ([id number]), editorial assistant SOFIA VINSON ([id number]) on 06/18/2019 9:19:50 A M Referred By: IBTEH Confirmed By:SHUBHAM AVINA MD
[2019-06-08 07:27] LABS: Hematocrit 39.9 % (37-47); Hemoglobin 12.5 g/dL (12.0-15.0); Mean Corp Hgb Conc 31.3 g/dL (32-36); Mean Corpuscular Volume 95.7 fL (81-99); Red Blood Count 4.17 M/mm3 (4.2-5.4); White Blood Count 4.4 K/mm3 (4.4-11.0)
[2019-06-08 07:28] LABS: Absolute Lymphocyte Count 2.54 X10^3/uL (0.83-4.51); Absolute Neutrophil Count 1.3 X10^3/uL (2.0-7.7); Basophil# 0.04 X10^3/uL; Basophil% 0.9 % (0-1); Eosinophil# 0.13 X10^3/uL; Lymphocyte # 2.54 X10^3/ul (4.0); Lymphocyte % 57.9 % (19-41); Mean Platelet Vol. 10.4 fl (6.2-12.0); Monocyte# 0.41 X10^3/uL; Monocyte% 9.3 % (0-10); Neutrophil # 1.26 X10^3/uL (2.7-7.7); Neutrophil % 28.7 % (47-70); Platelet Count 189 K/mm3 (150-450); RBC Distribution Width CV 51.9 % (11.6-14.6); RBC Distribution Width SD 14.7 fl (35.1-43.9)
--- NOTE | 2019-06-08 07:29 | RAD_ITS ---
STUDY: X-RAY CHEST REASON FOR EXAM: Female, 63 years old. Chest pain, history of right lung cancer TECHNIQUE: Single AP portable view of the chest. COMPARISON: 04/28/2019 FINDINGS: EKG leads overlie the chest. Surgical clips again noted overlying the medial right upper lobe. Stable postsurgical changes in the right hilum and pleural thickening in the right apex. The lungs are otherwise clear and expanded. There is no demonstrated pleural abnormality. Normal size heart. Normal mediastinum and tiago. Normal visualized pulmonary arteries. Normal visualized aortic arch and descending thoracic aorta. Normal visualized thoracic spine. Normal visualized ribs, clavicles, and shoulders. There is no demonstrated abnormality of the visualized soft tissue structures of the upper abdomen. RAD/Chest 1 View (Portable) IMPRESSION: Stable postsurgical changes, no acute pulmonary process Electronically Signed: Eb Farmer MD at 8:14 EDT , Service support ,
[2019-06-08 07:36] LABS: ALB/GLOB Ratio 0.7 RATIO (0.9-2.4); Albumin, Serum 3.2 g/dL (3.2-5.0); BUN 12 mg/dL (7-18); Globulin 4.3 g/dL (2.2-4.2); Glucose 141 mg/dL (74-106); Protein, Total 7.5 g/dL (6.4-8.2)
[2019-06-08 07:37] LABS: AST(SGOT) 54 U/L (15-37); Alanine Aminotransfer ALT/SGPT 20 U/L (13-56); Alkaline Phosphatase 65 U/L (45-117); Calcium,Total 8.5 mg/dL (8.5-10.1); Chloride 112 mmol/L (98-107); Potassium 5.1 mmol/L (3.5-5.1); Sodium Level 141 mmol/L (136-145)
[2019-06-08 07:39] LABS: Anion Gap 8 (5-15)
--- NOTE | 2019-06-08 07:41 | ED.VIS.GEN ---
History of Present Illness Chief Complaint: Palpitations Informant: Patient Onset: Month(s) Current Severity: Mild Narrative: Patient presents complaining of palpitations. She has a long history of palpitations, also has a history of lung cancer completed chemotherapy in April her lung cancer therapy has been going well she indicates however she believes that during and since her lung cancer therapy chemo, she has had more episodes of rapid heart rate. In the past when she is been evaluated for this condition she seen her histopathologist was referred to an EP physician, she was told she had SVT she does not have A. fib or V. tach it was recommended she undergo an ablation procedure but she declined it. She has no history of ID PE or DVT she is had no fever she had a chronic sense of cough and shortness of breath due to her lung cancer that is unchanged. She presents today because she has had more episodes of rapid heart rate over the last few days. The symptoms simply come on her heart races to about 160 and then the symptoms resolve on their own. This is identical to what happened to her over the long course of time she is had palpitations Past Medical History - Allergies and Home Meds Allergies/Adverse Reactions: Allergies codeine Adverse Reaction (Verified 06/08/19 06:53) Nausea verapamil Adverse Reaction (Verified 06/08/19 06:53) Nausea/Vom/Diarrhea Primary Care Physician: Fausto Butt MD [Primary Care Provider] - Past Medical History: - - Includes as above Surgical History: colectomy, - - Right lung lobectomy. Smoking Status: Former smoker - Family History Maternal Family History: Reports: No pertinent history Paternal Family History: Reports: No pertinent history Review of Systems General: Denies: Chills, Fever, Sweats Eyes: Denies: Visual changes - bilaterally, Diplopia ENT: Denies: Rhinorrhea, Sore throat Cardiovascular: Reports: Palpitations. Denies: Chest pain Respiratory: Reports: Dyspnea, Cough, - - He has baseline dyspnea and cough with her lung cancer that is unchanged. Denies: Dyspnea on exertion Gastrointestinal: Denies: Abdominal pain, Nausea, Vomiting, Diarrhea, Melena, Hematochezia Genitourinary: Denies: Dysuria, Hematuria, Frequency Musculoskeletal: Denies: Back pain, Extremity Pain Skin: Denies: Rash, Wounds Neurological: Denies: Headache, Weakness, Numbness Physical Exam Vital Signs/Narrative: Vital Signs Temp Pulse Resp BP Pulse Ox 06/08/19 06:51 97.9 F 97 20 H 127/84 H 97 General: Well nourished, Well developed, No Acute Distress Head: Normocephalic, Atraumatic Eyes: Perrl, EOMI ENT: Moist mucous membranes, No rhinorrhea Neck: Supple, Nontender Cardiovascular: Regular rate, Regular rhythm, No murmurs Respiratory: No distress, CTA bilaterally, Chest nontender, Wheezing Abdomen: Soft, Nontender, Nondistended, Normal bowel sounds Back: Nontender, Normal Inspection Extremities: Nontender, No edema Skin: Normal color, No rash Neurological: Alert, Oriented x3, Cranial nerves II-XII grossly intact, Normal Strength, Normal Sensation Psychological: Normal affect, Normal Mood Diagnostic/Tx/Re-eval - Medical Decision Making She is currently resting company the bed no distress her monitoring engineer shows sinus rhythm, her EKG shows a sinus rhythm no acute injury pattern intervals appropriate, no change from her baseline flipped P waves Long conversation with the patient she is concerned that since her chemotherapy in April she is been having more episodes of palpitations, she has not discussed this with her histopathologist or her EP histopathologist, she is resting the bed no distress she indicates that everything else with regards her health has been very good she feels if she is responded to the chemotherapy. She is scheduled for additional tests this month to check tumor and stage of cancer. At this time screening labs will be obtained we will observe The patient screening labs are all generally unremarkable as is a chest x-ray, during the. Of observation she is remained in a sinus rhythm had a long conversation with the patient reviewed everything with her again she insists this is her usual pattern with the palpitations but she is just concerned that she is having more palpitations since her chemo, and if she is to have more chemo she is concerned she might have more palpitations. I explained to her that I understood all the above but that could not be further determined from the emergency department recommend that she talk to her oncologist and her histopathologist about her concerns she is comfortable discharge home to follow-up with those outpatient providers and return for change in symptoms Home stable Impression final palpitations, history of lung cancer and chemotherapy, history of palpitations and SVT ED Disposition - Plan for ED Patient: Diagnosis: Palpitations Instructions: Palpitations Referrals: Fausto Butt MD [Primary Care Provider] - Additional Instructions: Please follow-up with your oncologist and histopathologist or primary care physician, regarding potential further therapies for the palpitations return for change in symptoms
[2019-06-08 08:43] VITALS: BP 115/77; PULSE 73; RESP 23; O2SAT 98
[2019-06-08 09:11] LABS: BNP,B-Type NATRIURETIC PEPTIDE 21.8 pg/mL (0-100)
[2019-06-08 11:27] LABS: BUN/Creat Ratio 13.3 RATIO (10-20); EST Glomerular Filtration Rate 67 mL/min (>60); Est Glom Filt Rate - Afr Amer 81 mL/min (>60)
== END 2019-06-08 09:34 | disposition home or self-care (01) ==
LOC: ED 07:34
PROVIDERS: Emergency Medicine; Emergency Provider Emergency Medicine; Family Provider Family Medicine; PCP Family Medicine
DX: R00.2 Palpitations (principal); Z88.5 Allergy status to narcotic agent; Z85.118 Personal history of other malignant neoplasm of bronchus and lung; Z92.21 Personal history of antineoplastic chemotherapy; Z87.891 Personal history of nicotine dependence; Z90.2 Acquired absence of lung [part of]; Z90.49 Acquired absence of other specified parts of digestive tract
CPT/HCPCS: 71045; 80053; 83880; 84484; 85025; 93005; 96360; 99285; J7040; A4216